=== PATIENT | male | born 1950 | race Caucasian/White ===

== ENCOUNTER 2020-04-11 15:01 | Outpatient (REF) | payer MEDICARE, SELFPAY ==
[2020-04-11 17:25] LABS: TSH reflex Free T4 10.57 mIU/mL (0.32-4.0)
[2020-04-11 18:00] LABS: Free T4 (Free Thyroxine) 0.89 ng/dL (0.71-1.85)
== END 2020-04-11 15:02 | disposition home or self-care (01) ==
LOC: HO.HMGCLDS 15:01
PROVIDERS: PCP Nurse Practitioner Family; Visit Provider Nurse Practitioner Family
DX: E03.9 Hypothyroidism, unspecified (principal)
CPT/HCPCS: 84439; 84443

== ENCOUNTER 2020-05-08 16:14 | Outpatient (REF) | payer MEDICARE, SELFPAY ==
--- NOTE | 2020-05-08 16:18 | US_ITS ---
EXAMINATION: US THYROID CLINICAL INFORMATION: Neoplasm of unspecified behavior of endocrine glands and other parts of nervous system. COMPARISON: Nuclear medicine parathyroid scan July 2017 TECHNIQUE: Linear transducer angelo-scale and color Doppler examination with attention to the region of the thyroid. FINDINGS: SIZE: Measurements of the thyroid lobes and nodules are given in sagittal, anteroposterior and transverse dimensions respectively. Right Thyroid Lobe: 4.5 x 1.6 x 1.3 cm, volume 5.0 mL. Parenchyma: The gland echotexture is heterogeneous. Thyroid vascularity is normal. Left Thyroid Lobe: 3.5 x 1.2 x 1.2 cm, volume 2.6 mL. Parenchyma: The gland echotexture is heterogeneous. Thyroid vascularity is normal. Isthmus: 0.4 cm in maximum AP dimension. RIGHT THYROID LOBE: No nodules. ISTHMUS: No nodules. LEFT THYROID LOBE: No nodules. NODES: No lymphadenopathy is seen in the tissue surrounding the thyroid gland. US/US thyroid IMPRESSION: Small very heterogeneous thyroid gland. This appearance is suggestive of old thyroiditis. No nodule seen..
== END 2020-05-08 16:15 | disposition home or self-care (01) ==
LOC: HO.US 16:14
PROVIDERS: PCP Nurse Practitioner Family; Visit Provider Nurse Practitioner Family
DX: D49.7 Neoplasm of unspecified behavior of endocrine glands and other parts of nervous system (principal)
CPT/HCPCS: 76536

== ENCOUNTER 2020-06-14 11:30 | Outpatient (REF) | payer MEDICARE, SELFPAY ==
[2020-06-14 14:50] LABS: TSH reflex Free T4 4.15 uIU/mL (0.32-4.0)
[2020-06-14 15:30] LABS: Free T4 (Free Thyroxine) 0.91 ng/dL (0.71-1.85)
== END 2020-06-14 11:31 | disposition home or self-care (01) ==
LOC: HO.HMGCLDS 11:30
PROVIDERS: PCP Nurse Practitioner Family; Visit Provider Nurse Practitioner Family
DX: E03.9 Hypothyroidism, unspecified (principal)
CPT/HCPCS: 36415; 84439; 84443

== ENCOUNTER 2020-08-23 09:18 | Outpatient (REF) | payer MEDICARE, SELFPAY ==
[2020-08-23 11:40] LABS: MANUAL DIFF FLAG NO
[2020-08-23 11:47] LABS: Basophils Absolute Auto 0.1 X10*3/uL (0.0-0.2); Basophils Percent Auto 0.7 % (0-2); Eosinophils Absolute Auto 0.3 X10*3/uL (0.0-0.4); Eosinophils Percent Auto 3.9 % (0-4); Hematocrit 52.1 % (42-52); Imm Gran Abs Auto 0.05 X10*3/uL (0.00-0.03); Imm Gran Pct Auto 0.6 % (0.0-0.4); Lymphocytes Absolute Auto 2.6 X10*3/uL (1.2-4.9); Mean Corpuscular HGB Conc 32.6 g/dl (31.0-36.0); Mean Corpuscular Hemoglobin 30.7 pg (27.0-33.0); Mean Platelet Volume 11.4 fL (9.4-12.4); Monocytes Absolute Auto 0.5 X10*3/uL (0.1-1.2); Monocytes Percent Auto 6.1 % (2-11); Neutrophils Absolute Auto 4.7 X10*3/uL (2.0-8.3); Neutrophils Percent Auto 56.7 % (45-73); Platelet Count 181 X10*3/uL (160-400); Red Blood Count 5.54 X10*6/uL (4.60-5.80); Red Cell Distribution Width 14.6 % (11.0-16.0); White Blood Count 8.2 X10*3/uL (4.8-10.8)
[2020-08-23 12:18] LABS: Alanine Aminotransferase 21 U/L (0-40); Albumin Level 4.3 g/dL (3.5-5.0); Alkaline Phosphatase 117 U/L (39-117); Anion Gap 13 (12-20); Aspartate Amino Transferase 21 U/L (5-37); Bilirubin Total 0.5 mg/dL (0.0-1.0); Blood Urea Nitrogen 8 mg/dL (9-16); Carbon Dioxide 29 mmol/L (22-29); Chloride 104 mmol/L (96-108); Cholesterol 197 mg/dL; Estimated Glomerular Filt Rate > 60; Glucose Fasting 103 mg/dL (60-99); HDL Cholesterol 42 mg/dL; LDL Cholesterol Calculated 119 mg/dl; Potassium 4.4 mmol/L (3.3-5.1); Sodium 142 mmol/L (135-145); Total Protein 7.2 g/dL (6.5-8.0); Triglycerides 184 mg/dL
[2020-08-23 12:24] LABS: Prostate Specific Antigen Scr 1.33 ng/mL (<0.05-4.0); TSH reflex Free T4 3.35 uIU/mL (0.32-4.0)
== END 2020-08-23 09:19 | disposition home or self-care (01) ==
LOC: HO.HMGCLDS 09:18
PROVIDERS: PCP Nurse Practitioner Family; Visit Provider Nurse Practitioner Family
DX: I49.9 Cardiac arrhythmia, unspecified (principal); E78.5 Hyperlipidemia, unspecified; Z12.5 Encounter for screening for malignant neoplasm of prostate
CPT/HCPCS: 36415; 80053; 80061; 84153; 84443; 85025

== ENCOUNTER → 2020-09-12 14:00 | Outpatient (REF) | payer MEDICARE, SELFPAY ==
--- NOTE | 2020-09-12 14:10 | ECG_ITS ---
Hook-up date: 2020-09-12 14:24:00 Duration: 40:15:00 Test Indications: CARDIAC ARHHYTHMIA, UNSPECIFIED Medications: 264178 QRS complexes 4626 Ventricular ectopics which represent 4 % of total QRS comp. 2306 Supraventricular ectopics which represent 2 % of total QRS comp. 1 Paced QRS complexs which represent 2 % of total QRS comp. VENTRICULAR ECTOPY 4579 Isolated 183 Bigeminal Cycles 22 Couplets 1 Runs 3 Beats in Runs 3 Beats LONGEST at 159 BPM at 20:26:36 2020-09-12 3 Beats FASTEST at 159 BPM at 20:26:36 2020-09-12 SUPRAVENTRICULAR ECTOPY 2141 Isolated 65 Couplets 7 Runs 35 Beats in Runs 12 Beats LONGEST at 110 BPM at 07:06:03 2020-09-13 3 Beats FASTEST at 148 BPM at 17:34:53 2020-09-12 HEART RATES 46 MIN at 01:04:24 2020-09-13 74 AVG 126 MAX at 15:36:11 2020-09-12 LONGEST RR 1.3920 secs at 05:24:43 2020-09-13 S-T LEVELS Channel 1 - 128 mm at 14:24:00 2020-09-12 - 128 mm at 14:24:00 2020-09-12 Channel 2 - 128 mm at 14:24:00 2020-09-12 - 128 mm at 14:24:00 2020-09-12 Channel 3 - 128 mm at 03:34:31 -- - 128 mm at 03:34:31 Underlying rhythm is sinus; Average ventricular rate 74/min; Occasional Premature atrial complexes (2%); mostly isolated; some runs, longest 12 beats; Frequent Premature ventricular complexes (4%); mostly isolated; some couplets; bigeminy; No sustained arrhythmias; Patient did not report any symptoms in the diary Referred By: Konrad Marte Overread By: JANIS SEO
[2020-09-12 15:45] LABS: TSH reflex Free T4 4.22 uIU/mL (0.32-4.0)
[2020-09-12 16:36] LABS: Free T4 (Free Thyroxine) 0.93 ng/dL (0.71-1.85)
== END ==
LOC: HO.CARD 14:00
PROVIDERS: PCP Nurse Practitioner Family; Visit Provider Nurse Practitioner Family
DX: I49.9 Cardiac arrhythmia, unspecified (principal); R06.02 Shortness of breath; E03.9 Hypothyroidism, unspecified
CPT/HCPCS: 36415; 84439; 84443; 93225; 93226

== ENCOUNTER 2021-06-11 11:25 | Outpatient (REF) | payer MEDICARE, SELFPAY ==
--- NOTE | ~2021-06-11 | XR_ITS ---
EXAMINATION: XR LUMBOSACRAL SPINE CLINICAL INFORMATION: Low back pain COMPARISON: None TECHNIQUE: Three views of the lumbosacral spine. FINDINGS: No acute fracture or traumatic malalignment. Vertebral body heights maintained. Slight retrolisthesis of L2 on L3. Near-complete loss of disc space height at L5-S1. Mild loss of disc space height at L2-L3 and L3-L4. Bulky hypertrophic facet arthropathy at L4-L5 and L5-S1, and to a lesser extent L3-L4. Mild bilateral sacroiliac arthrosis. Paraspinal soft tissues unremarkable. XR/XR lumbar spine 2-3V IMPRESSION: No acute findings. Lumbar spondylosis as described.
[2021-06-11 15:02] LABS: Alanine Aminotransferase 17 U/L (0-40); Albumin Level 4.4 g/dL (3.5-5.0); Alkaline Phosphatase 131 U/L (39-117); Anion Gap 10 (12-20); Aspartate Amino Transferase 26 U/L (5-37); Bilirubin Total 0.7 mg/dL (0.0-1.0); Blood Urea Nitrogen 10 mg/dL (9-16); Calcium 9.4 mg/dL (8.4-10.2); Carbon Dioxide 30 mmol/L (22-29); Chloride 104 mmol/L (96-108); Cholesterol 171 mg/dL; Estimated Glomerular Filt Rate > 60; Glucose Fasting 99 mg/dL (60-99); HDL Cholesterol 42 mg/dL; LDL Cholesterol Calculated 100 mg/dl; Potassium 4.3 mmol/L (3.3-5.1); Sodium 140 mmol/L (135-145); Total Protein 7.2 g/dL (6.5-8.0); Triglycerides 145 mg/dL
[2021-06-11 15:25] LABS: TSH reflex Free T4 2.76 uIU/mL (0.32-4.0)
== END 2021-06-11 11:26 | disposition home or self-care (01) ==
LOC: HO.HMGCX 11:25
PROVIDERS: PCP Nurse Practitioner Family; Visit Provider Nurse Practitioner Family
DX: M54.50 Low back pain, unspecified (principal); E78.5 Hyperlipidemia, unspecified
CPT/HCPCS: 36415; 72100; 80053; 80061; 84443

== ENCOUNTER → 2021-09-12 14:07 | Outpatient (RCR) | payer MEDICARE, SELFPAY ==
--- NOTE | 2020-03-02 14:56 | MHC.PT.EP ---
[facility] [place] Office [place] Office [place] Office [address] Marilu Durham [address] [phone] F: [phone] F: [phone] F: [phone] F: [phone] Physical Therapy Plan of Care Date of Evaluation: 03/02/20 Date of Surgery: n/a Diagnosis: Better Impairment Assessment: Patient is a 69 year old male recently diagnosed with Alzheimer's per his daughters report. He enjoys staying active and walks his dogs 2x/day. He has good strength and is determined to be a safe ambulator and not in need of skilled PT at this time. Frequency and Duration: The patient will be seen d/c today. Short Term Goals: Campaign Assistant Goals: Treatment Plan: Modalities to reduce pain, spasms and effusion. Manual therapy to restore motion and function. Therapeutic exercise to improve strength and flexibility. Neuromuscular re-education for posture and balance. Therapeutic activities to return to functional activities of daily living. Please sign and return to therapist. Thank you for your referral.
--- NOTE | 2021-09-12 14:07 | MHC.PT.DC ---
[facility] [place] Office [place] Office [place] Office [address] Marilu Durham 140 [facility] [phone] F: [phone] F: [phone] F: [phone] F: [phone] Physical Therapy Discharge Report Diagnosis: Better Impairment Date of Surgery: n/a Date of Evaluation: 03/02/20 Date of Discharge: 09/12/21 Treatments to Date: 1 Cancellations to Date: No Shows to Date: Discharge Status: Patient Elected to Stop Discharge Summary: Pt is a 69 year old male recently diagnosed with alzheimers who is attending this PT evaluation for a balance assessment to determine if PT is needed. It is my determination that he is a safe ambulator at this time and is not in need of skilled PT as a result of his current strength and DGI/balance test performance. DC to [facility] Electronically signed by: Brinda Saba PT Please sign and return to therapist. Thank you for your referral.
== END | disposition home or self-care (01) ==
LOC: HO.PTCHIC 03-02 13:52
PROVIDERS: PCP Nurse Practitioner Family; Visit Provider Nurse Practitioner Family
DX: R26.89 Other abnormalities of gait and mobility (principal)
CPT/HCPCS: 97161

== ENCOUNTER 2021-11-19 13:56 | Outpatient (REF) | payer MEDICARE, SELFPAY ==
[2021-11-19 16:41] LABS: MANUAL DIFF FLAG NO
[2021-11-19 16:43] LABS: Basophils Absolute Auto 0.1 X10*3/uL (0.0-0.2); Basophils Percent Auto 0.4 % (0-2); Eosinophils Absolute Auto 0.3 X10*3/uL (0.0-0.4); Eosinophils Percent Auto 2.3 % (0-4); Hematocrit 54.5 % (42.0-52.0); Imm Gran Abs Auto 0.04 X10*3/uL (0.00-0.03); Imm Gran Pct Auto 0.4 % (0.0-0.4); Lymphocytes Absolute Auto 3.1 X10*3/uL (1.2-4.9); Lymphocytes Percent Auto 27.6 % (20-40); Mean Corpuscular Hemoglobin 30.6 pg (27.0-33.0); Mean Corpuscular Volume 92.5 fL (80.0-98.0); Mean Platelet Volume 11.2 fL (9.4-12.4); Monocytes Absolute Auto 0.8 X10*3/uL (0.1-1.2); Monocytes Percent Auto 6.8 % (2-11); Neutrophils Absolute Auto 7.1 x10*3/uL (2.0-8.3); Neutrophils Percent Auto 62.5 % (45-73); Platelet Count 197 X10*3/uL (160-400); Red Blood Count 5.89 X10*6/uL (4.60-5.80); Red Cell Distribution Width 14.5 % (11.0-16.0); White Blood Count 11.4 X10*3/uL (4.8-10.8)
[2021-11-19 16:58] LABS: Alanine Aminotransferase 15 U/L (0-40); Albumin Level 4.7 g/dL (3.5-5.0); Alkaline Phosphatase 130 U/L (39-117); Anion Gap 15 (12-20); Aspartate Amino Transferase 19 U/L (5-37); Bilirubin Total 0.5 mg/dL (0.0-1.0); Blood Urea Nitrogen 10 mg/dL (9-16); Calcium 9.5 mg/dL (8.4-10.2); Carbon Dioxide 23 mmol/L (22-29); Chloride 107 mmol/L (96-108); Estimated Glomerular Filt Rate > 60; Glucose Fasting 86 mg/dL (60-99); Sodium 141 mmol/L (135-145); Total Protein 7.6 g/dL (6.5-8.0)
[2021-11-19 17:18] LABS: TSH reflex Free T4 5.68 uIU/mL (0.32-4.0)
[2021-11-19 17:56] LABS: Free T4 (Free Thyroxine) 0.97 ng/dL (0.71-1.85)
== END 2021-11-19 13:57 | disposition home or self-care (01) ==
LOC: HO.HMGCLDS 13:56
PROVIDERS: Visit Provider Nurse Practitioner Family
DX: E86.0 Dehydration (principal); R55 Syncope and collapse
CPT/HCPCS: 36415; 80053; 84439; 84443; 85025

== ENCOUNTER 2021-12-03 09:04 | Outpatient (REF) | payer MEDICARE, SELFPAY ==
[2021-12-03 11:35] LABS: MANUAL DIFF FLAG NO
[2021-12-03 11:46] LABS: Basophils Percent Auto 0.5 % (0-2); Eosinophils Absolute Auto 0.3 X10*3/uL (0.0-0.4); Eosinophils Percent Auto 3.1 % (0-4); Hematocrit 50.3 % (42.0-52.0); Hemoglobin 16.3 g/dl (14.0-18.0); Imm Gran Abs Auto 0.03 X10*3/uL (0.00-0.03); Imm Gran Pct Auto 0.3 % (0.0-0.4); Lymphocytes Absolute Auto 2.3 X10*3/uL (1.2-4.9); Mean Corpuscular HGB Conc 32.4 g/dl (31.0-36.0); Mean Corpuscular Hemoglobin 30.2 pg (27.0-33.0); Mean Corpuscular Volume 93.3 fL (80.0-98.0); Mean Platelet Volume 11.1 fL (9.4-12.4); Monocytes Absolute Auto 0.5 X10*3/uL (0.1-1.2); Monocytes Percent Auto 5.9 % (2-11); Neutrophils Absolute Auto 5.4 x10*3/uL (2.0-8.3); Neutrophils Percent Auto 63.2 % (45-73); Platelet Count 186 X10*3/uL (160-400); Red Blood Count 5.39 X10*6/uL (4.60-5.80); Red Cell Distribution Width 14.6 % (11.0-16.0); White Blood Count 8.6 X10*3/uL (4.8-10.8)
[2021-12-03 11:55] LABS: Alanine Aminotransferase 19 U/L (0-40); Albumin Level 4.5 g/dL (3.5-5.0); Alkaline Phosphatase 121 U/L (39-117); Anion Gap 12 (12-20); Aspartate Amino Transferase 19 U/L (5-37); Bilirubin Direct 0.2 mg/dL (0.0-0.5); Bilirubin Total 0.5 mg/dL (0.0-1.0); Blood Urea Nitrogen 18 mg/dL (9-16); Calcium 9.2 mg/dL (8.4-10.2); Carbon Dioxide 30 mmol/L (22-29); Chloride 104 mmol/L (96-108); Estimated Glomerular Filt Rate > 60; Gamma Glutamyl Transpeptidase 51 U/L (11-51); Glucose Random 95 mg/dL (60-115); Potassium 4.5 mmol/L (3.3-5.1); Sodium 141 mmol/L (135-145); Total Protein 7.2 g/dL (6.5-8.0)
[2021-12-03 12:16] LABS: Prostate Specific Antigen Scr 0.82 ng/mL (<0.05-4.0)
== END 2021-12-03 09:05 | disposition home or self-care (01) ==
LOC: HO.HMGCLDS 09:04
PROVIDERS: PCP Nurse Practitioner Family; Visit Provider Nurse Practitioner Family
DX: Z12.5 Encounter for screening for malignant neoplasm of prostate (principal); R74.8 Abnormal levels of other serum enzymes; D72.829 Elevated white blood cell count, unspecified
CPT/HCPCS: 36415; 80053; 82248; 82977; 84153; 85025

== ENCOUNTER 2022-01-24 14:44 | Outpatient (REF) | payer MEDICARE, SELFPAY ==
[2022-01-24 17:54] LABS: TSH reflex Free T4 3.36 uIU/mL (0.32-4.0)
== END 2022-01-24 14:45 | disposition home or self-care (01) ==
LOC: HO.HMGCLDS 14:44
PROVIDERS: PCP Nurse Practitioner Family; Visit Provider Nurse Practitioner Family
DX: E03.9 Hypothyroidism, unspecified (principal)
CPT/HCPCS: 36415; 84443

== ENCOUNTER 2023-02-03 10:29 | Outpatient (AMB) | payer MEDICARE, SELFPAY ==
[2023-02-03 10:32] VITALS: BP 120/80; PULSE 66; O2SAT 100; BMI 24.3
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
== END 2023-02-03 11:40 | disposition home or self-care (01) ==
PROVIDERS: Visit Provider Nurse Practitioner Family
DX: F32.4 Major depressive disorder, single episode, in partial remission (principal); G30.9 Alzheimer's disease, unspecified; F02.818 Dementia in other diseases classified elsewhere, unspecified severity, with other behavioral disturbance
CPT/HCPCS: 99213

== ENCOUNTER 2023-05-26 10:17 | Outpatient (REF) | payer MEDICARE, SELFPAY ==
[2023-05-26 13:30] LABS: MANUAL DIFF FLAG NO
[2023-05-26 13:35] LABS: Basophils Absolute Auto 0.1 X10*3/uL (0.0-0.2); Basophils Percent Auto 0.5 % (0-2); Eosinophils Absolute Auto 0.2 X10*3/uL (0.0-0.4); Hematocrit 53.4 % (42.0-52.0); Hemoglobin 17.3 g/dl (14.0-18.0); Imm Gran Abs Auto 0.03 X10*3/uL (0.00-0.03); Imm Gran Pct Auto 0.3 % (0.0-0.4); Lymphocytes Absolute Auto 2.1 X10*3/uL (1.2-4.9); Lymphocytes Percent Auto 21.4 % (20-40); Mean Corpuscular HGB Conc 32.4 g/dl (31.0-36.0); Mean Corpuscular Volume 92.5 fL (80.0-98.0); Mean Platelet Volume 10.9 fL (9.4-12.4); Monocytes Absolute Auto 0.6 X10*3/uL (0.1-1.2); Monocytes Percent Auto 5.8 % (2-11); Neutrophils Absolute Auto 6.9 x10*3/uL (2.0-8.3); Platelet Count 212 X10*3/uL (160-400); Red Blood Count 5.77 X10*6/uL (4.60-5.80); Red Cell Distribution Width 14.5 % (11.0-16.0); White Blood Count 9.9 X10*3/uL (4.8-10.8)
[2023-05-26 13:59] LABS: Alanine Aminotransferase 15 U/L (0-40); Albumin Level 4.4 g/dL (3.5-5.0); Alkaline Phosphatase 104 U/L (39-117); Anion Gap 15 (12-20); Aspartate Amino Transferase 19 U/L (5-37); Bilirubin Total 0.7 mg/dL (0.0-1.0); Blood Urea Nitrogen 17 mg/dL (9-16); Calcium 9.7 mg/dL (8.4-10.2); Carbon Dioxide 28 mmol/L (22-29); Chloride 101 mmol/L (96-108); Cholesterol 180 mg/dL (<200); Estimated Glomerular Filt Rate > 60; Glucose Fasting 90 mg/dL (60-99); HDL Cholesterol 40 mg/dL (>40); LDL Cholesterol Calculated 94 mg/dL (<100); Potassium 4.8 mmol/L (3.3-5.1); Sodium 139 mmol/L (135-145); Total Protein 7.6 g/dL (6.5-8.0); Triglycerides 234 mg/dL (<150)
[2023-05-26 14:10] LABS: Prostate Specific Antigen Scr 0.99 ng/mL (<0.05-4.0)
[2023-05-26 14:22] LABS: TSH reflex Free T4 5.06 uIU/mL (0.32-4.0)
[2023-05-26 15:03] LABS: Free T4 (Free Thyroxine) 0.93 ng/dL (0.71-1.85)
== END 2023-05-26 10:18 | disposition home or self-care (01) ==
LOC: HO.HMGCLDS 10:17
PROVIDERS: PCP Nurse Practitioner Family; Visit Provider Nurse Practitioner Family
DX: G30.9 Alzheimer's disease, unspecified (principal); F01.50 Vascular dementia, unspecified severity, without behavioral disturbance, psychotic disturbance, mood disturbance, and anxiety; F02.80 Dementia in other diseases classified elsewhere, unspecified severity, without behavioral disturbance, psychotic disturbance, mood disturbance, and anxiety; F32.4 Major depressive disorder, single episode, in partial remission; Z12.5 Encounter for screening for malignant neoplasm of prostate
CPT/HCPCS: 36415; 80053; 80061; 84153; 84439; 84443; 85025

== ENCOUNTER 2023-05-26 10:26 | Outpatient (AMB) | payer MEDICARE, SELFPAY ==
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
[2023-05-26 10:33] VITALS: BP 110/74; PULSE 71; O2SAT 97; BMI 24.5
== END 2023-05-26 11:19 | disposition home or self-care (01) ==
PROVIDERS: PCP Nurse Practitioner Family; Visit Provider Nurse Practitioner Family
DX: G30.9 Alzheimer's disease, unspecified (principal); F02.818 Dementia in other diseases classified elsewhere, unspecified severity, with other behavioral disturbance; S40.811A Abrasion of right upper arm, initial encounter; Z23 Encounter for immunization
CPT/HCPCS: 90471; 90715; 99213

== ENCOUNTER 2023-08-14 10:13 | Outpatient (REF) | payer MEDICARE, SELFPAY ==
[2023-08-14 13:45] LABS: MANUAL DIFF FLAG NO
[2023-08-14 13:50] LABS: Basophils Absolute Auto 0.1 X10*3/uL (0.0-0.2); Basophils Percent Auto 0.6 % (0-2); Eosinophils Absolute Auto 0.2 X10*3/uL (0.0-0.4); Eosinophils Percent Auto 2.3 % (0-4); Hematocrit 52.5 % (42.0-52.0); Hemoglobin 17.1 g/dl (14.0-18.0); Imm Gran Abs Auto 0.03 X10*3/uL (0.00-0.03); Imm Gran Pct Auto 0.3 % (0.0-0.4); Lymphocytes Absolute Auto 1.9 X10*3/uL (1.2-4.9); Lymphocytes Percent Auto 21.8 % (20-40); Mean Corpuscular HGB Conc 32.6 g/dl (31.0-36.0); Mean Corpuscular Hemoglobin 30.4 pg (27.0-33.0); Mean Corpuscular Volume 93.3 fL (80.0-98.0); Mean Platelet Volume 11.1 fL (9.4-12.4); Monocytes Absolute Auto 0.5 X10*3/uL (0.1-1.2); Monocytes Percent Auto 6.2 % (2-11); Neutrophils Absolute Auto 5.9 x10*3/uL (2.0-8.3); Neutrophils Percent Auto 68.8 % (45-73); Platelet Count 181 X10*3/uL (160-400); Red Blood Count 5.63 X10*6/uL (4.60-5.80); Red Cell Distribution Width 14.6 % (11.0-16.0); White Blood Count 8.6 X10*3/uL (4.8-10.8)
[2023-08-14 14:19] LABS: Alanine Aminotransferase 15 U/L (0-40); Albumin Level 4.4 g/dL (3.5-5.0); Alkaline Phosphatase 98 U/L (39-117); Anion Gap 12 (12-20); Aspartate Amino Transferase 20 U/L (5-37); Bilirubin Total 0.9 mg/dL (0.0-1.0); Blood Urea Nitrogen 14 mg/dL (9-16); Calcium 9.4 mg/dL (8.4-10.2); Carbon Dioxide 29 mmol/L (22-29); Chloride 104 mmol/L (96-108); Cholesterol 158 mg/dL (<200); Estimated Glomerular Filt Rate > 60; Glucose Fasting 83 mg/dL (60-99); HDL Cholesterol 45 mg/dL (>40); LDL Cholesterol Calculated 83 mg/dL (<100); Potassium 4.5 mmol/L (3.3-5.1); Sodium 140 mmol/L (135-145); Total Protein 7.4 g/dL (6.5-8.0); Triglycerides 153 mg/dL (<150)
[2023-08-14 14:23] LABS: TSH reflex Free T4 3.95 uIU/mL (0.32-4.0)
== END 2023-08-14 10:14 | disposition home or self-care (01) ==
LOC: HO.HMGCLDS 10:13
PROVIDERS: PCP Nurse Practitioner Family; Visit Provider Nurse Practitioner Family
DX: E03.9 Hypothyroidism, unspecified (principal); E78.5 Hyperlipidemia, unspecified
CPT/HCPCS: 36415; 80053; 80061; 84443; 85025

== ENCOUNTER 2023-08-27 14:49 | Outpatient (AMB) | payer MEDICARE, SELFPAY ==
--- NOTE | 2023-08-27 15:56 | MHC.OFFVISPS ---
Intake Vital Signs 08/27/23 15:57 Height 6 ft 2 in Weight 191 lb BP 110/72 Intake Visit Reasons: depression, Alzheimer's dementia with agitation Intake Note: 72 yo male with diagnosis of Alzheimer's dementia with intermittent agitation and aggressive behavior referred by PCP Dr. Marte. Billing Assistant Required: No Allergies acetaminophen [Percocet] Adverse Reaction (Unknown, Verified 05/26/23 10:34) nausea, dry heaves oxycodone [Percocet] Adverse Reaction (Unknown, Verified 05/26/23 10:34) nausea, dry heaves HPI- Psychiatric Chief Complaint: depression, Alzheimer's dementia with agitation HPI Narrative: pt is here with his sister Toshia who is also his HCP; copy of HCP in chart. Pt is polite and cooperative in session; he reports he is unhappy about many things including loss of his , loss of his mother, recent loss of his dog. he is unable to drive and he does not like that. He does state he eats well; he says his daughter is difficult to live with due to needing so much help such as doing laundry and not putting excessive amounts of soap in the washer which causes problems. His sister tells me that Trung is often unhappy. he can be very verbally aggressive and at times physically aggressive. The family is trying to keep him in his home as long as possible but it has been very hard due to his forgetfulness and his moods and aggression. The family has help from [facility]. We discussed medication options for irritability and aggression as well as the risks vs benefits and potential side effects including the risk of stroke and . We discussed mood stabilizers and atypical antipsychotics; HCP and I agree that given depression and agitation due to dementia that a trial of rexulti is reasonable. discussed startifgin low. improtance of hyfdrating and watching for syncope, dizziness and unsteadiness. Past Psychiatric History: N IPLOC, no history of treatment with psychiatry or therapy in past; on zoloft 200mg daily with PCP diagnosed with dementia by Dr Aldridge 2+ years ago. Now followed by [facility] Neu[facility] Presenting symptoms: Reports disorientation to time, geographical disorientation and personality changes Christianson: I=independent, NA=needs assistance, CD=completely dependent Daily Functions: Dressing: Needs Assistance, Grooming: Needs Assistance, Toileting: Independent, Eating: Independent, Finances: Needs Assistance, Cooking: Needs Assistance, Cleaning: Needs Assistance and Driving: Completely Dependent Tempo of progression: slow progression Aided by cues: Yes Wandering: No Medication trials: Namenda/Memantine Subjective Subjective Subjective Medication Compliance: Intermittent Side effects from medications: No Review of Systems Medical Review of Systems: unchanged Mental Status Exam Mental Status Exam Patient Appearance: Disheveled and Unkempt Patient Orientation: Person, Place and Situation (in a general way) Level of Consciousness: Awake Patient Behavior: Appropriate and Cooperative Mood Description: Calm and Sad Affect Description: Calm and Sad Patient Cognition Impaired: Yes Ability to Follow Directions: Fair Speech Pattern: Spontaneous Speech, Cofabulation and Delayed Hallucinations: None Delusions: Not Present Thought Process: Distracted Thought Content: positive for Loose Associations Judgement: Poor Assessment and Plan Assessment & Plan (1) Alzheimer's dementia with agitation: Qualifiers: Alzheimer's disease onset: early onset Dementia severity: moderate Qualified Code(s): G30.0 - Alzheimer's disease with early onset; F02.B11 - Dementia in other diseases classified elsewhere, moderate, with agitation Code(s): G30.9 - Alzheimer's disease, unspecified; F02.811 - Dementia in other diseases classified elsewhere, unspecified severity, with agitation Plan start rexulti 0.25mg daily hydrate monitor for side effects return in 4 weeks with plan to titrate up Medications: New brexpiprazole (Rexulti) 0.25 mg PO DAILY 30 tabs 1RF Counseling and coordination of Care Pt. Self Management counseling: Sleep hygiene Details-Self Mgmt counseling: management of orthostatic hypotension Medication management counseling: Effectiveness, Side effects, Dosing range, Duration, Drug interaction and Adherence Diagnosis and Prognosis Counseling: Accuracy of diagnosis, Prognosis over time, Impact of diagnosis on life functions, Impact of family relationship, Problematic behaviors secondary to diagnosis and Adequacy of current interventions Details: I spent 60 minutes reviewing the record, seeing the patient and documenting in the medical record. Counseling provided to the patient/caregiver as outlined below. Addressed patient/caregiver concerns regarding current medication regime including effective adherence. Addressed patient/caregiver concerns regarding diagnosis and prognosis including accuracy of diagnosis, prognosis over time, impact of diagnosis. Addressed patient/caregiver concerns regarding impact of recent stressors. [facility] Medical History Mixed Alzheimer's and vascular dementia Balance problem Vitamin D deficiency HTN (hypertension) Major depressive disorder Irregular heart rhythm Alzheimer disease Osteoarthritis of right shoulder Lumbar spondylosis Lumbar degenerative disc disease Anxiety GERD (gastroesophageal reflux disease) Hypothyroid Surgical History History of parathyroidectomy Family History Father CVD (cardiovascular disease) Mother Unknown family medical history Social History Housing: House Alcohol intake: current Alcohol intake frequency: holidays/special occasions only Patient Tobacco Use Status: Former Tobacco user Years Smoked: quit 40 years ago e-Cigarette/Vaping Use: Never Used Second Hand Smoke Exposure: No Current occupational status: retired Cognitive needs: No Hearing needs: Yes Vision needs: Yes Social History: x 7 yrs; lives wit daughter who has special needs; siblings are supportive; his HCP is sister Toshia Substance History: etoh in past rarely now Trauma History: none known Coding Level of Care Code Psych Diag Eval w/Med (67143) Diagnoses Moderate early onset Alzheimer's dementia with agitation G30.0; F02.B11 Alzheimer's disease onset: early onset Dementia severity: moderate
[2023-08-27 15:57] VITALS: BP 110/72
== END 2023-08-27 17:26 | disposition home or self-care (01) ==
LOC: HO.HOP 14:49
PROVIDERS: PCP Nurse Practitioner Family; Visit Provider Clinical Nurse Specialist Psychiatric/Mental Health
DX: G30.0 Alzheimer's disease with early onset (principal); F02.B11 Dementia in other diseases classified elsewhere, moderate, with agitation
CPT/HCPCS: 90792

== ENCOUNTER → 2023-08-27 14:49 | Outpatient (BNVA) | payer MEDICARE, SELFPAY | PROVIDERS: PCP Nurse Practitioner Family; Visit Provider Clinical Nurse Specialist Psychiatric/Mental Health | DX: G30.0 Alzheimer's disease with early onset (principal); F02.B11 Dementia in other diseases classified elsewhere, moderate, with agitation | CPT/HCPCS: 90792 ==

== ENCOUNTER 2023-09-15 13:06 | Outpatient (AMB) | payer MEDICARE, SELFPAY ==
--- NOTE | 2023-09-15 13:07 | A.OFFPC_ITS ---
Vital Signs 09/15/23 13:13 Height 6 ft 2 in Weight 196 lb BMI 25.2 BP 120/80 Blood Pressure Location Rt brachial Position Sitting Pulse 85 Pulse Source Pulse Oximeter Pulse Oximetry (%) 97 Oxygen Delivery Method Room Air Intake Visit Reasons: 3 month fu Intake Note: Patient here Allergies acetaminophen [Percocet] Adverse Reaction (Unknown, Verified 09/15/23 13:20) nausea, dry heaves oxycodone [Percocet] Adverse Reaction (Unknown, Verified 09/15/23 13:20) nausea, dry heaves Medication List - Last Reconciled 09/15/23 by [facility] Crowe acetaminophen (Tylenol Extra Strength) 500 mg PO BID PRN aripiprazole (Abilify) 2 mg PO DAILY atorvastatin 20 mg PO DAILY 90 days cholecalciferol (vitamin D3) 25 mcg PO DAILY 90 days donepezil 10 mg PO DAILY 90 days famotidine 40 mg PO BEDTIME 90 days flu vac 2020 [id number](PF) 60 mcg (15 mcg x 4)/0.5 mL 0.5 mL IM DIRECTED levothyroxine 100 mcg PO DAILY 90 days loratadine (Claritin) 10 mg PO DAILY memantine 10 mg PO DAILY omeprazole 40 mg PO DAILY 90 days sertraline 200 mg (2 x 100 mg) PO DAILY 90 days Tobacco use date assessed: 05/26/23 Fall risk assessment: No Falls in past year Last assessed Fall Risk: 09/15/23 Dental Screening Dental Screen Date: 05/26/23 HPI 3 month fu HPI Details Pt's sister is in the room today. Pt is following up with psychiatry due to Alzheimer's with aggression. He was started on rexulti but copay was too high. Pt was switched to abilify which he started 1 week ago. He is in very good spirits today. Pt's sister is looking into a day program for him for socialization. Denies fever, chills, and dizziness. NOTE: pt lives with his daughter, and is checked upon, daily, by sisters [facility] Medical History Mixed Alzheimer's and vascular dementia Balance problem Vitamin D deficiency HTN (hypertension) Major depressive disorder Irregular heart rhythm Alzheimer disease Osteoarthritis of right shoulder Lumbar spondylosis Lumbar degenerative disc disease Anxiety GERD (gastroesophageal reflux disease) Hypothyroid Surgical History History of parathyroidectomy Family History Father CVD (cardiovascular disease) Mother Unknown family medical history Social History Housing: House Alcohol intake: current Alcohol intake frequency: holidays/special occasions only Patient Tobacco Use Status: Former Tobacco user Years Smoked: quit 40 years ago e-Cigarette/Vaping Use: Never Used Second Hand Smoke Exposure: No Current occupational status: retired Cognitive needs: No Hearing needs: Yes Vision needs: Yes Questionnaire Thrive Questionnaire Date Thrive assessed: 05/26/23 AUDIT C Alcohol Use Questionnaire (AUDIT-C) 1. How often do you have a drink containing alcohol?: Never 3. How often do you have six or more drinks on one occasion?: Never Total Score: 0 Score Reviewed/Action Taken: No DEMIAN-7 AMB Questionnaire DEMIAN-7 Date DEMIAN - 7 assessed: 05/26/23 Source: Developed by Drs. Robbie Anderson, Elizabeth Hilario, Cristofer Sánchez and colleagues, with an educational mansoor from [employer]. Review of Systems Const Reports as per HPI Physical exam (Primary Care) Vital Signs: Last Vital Signs Pulse 85 09/15/23 13:13 BP 120/80 09/15/23 13:13 Pulse Ox 97 09/15/23 13:13 Oxygen Delivery Method Room Air 09/15/23 13:13 BMI result Body Mass Index 25.2 Tobacco/Smoking Status: Tobacco use Status Tobacco use date assessed 05/26/23 09/15/23 13:10 Patient Tobacco Use Status Former Tobacco user 09/15/23 13:10 e-Cigarette/Vaping Use Never Used 09/15/23 13:10 Thrive Assessment: Date of Thrive Assessment Date Thrive assessed 05/26/23 09/15/23 13:10 Const General: cooperative Orientation/consciousness: patient oriented x3 Resp Effort & Inspection: normal respiratory effort Auscultation: clear to auscultation bilaterally Cardio Rate: regular rate Rhythm: regular rhythm Heart sounds: S1 normal heart sound present and S2 normal heart sound present Neuro General: patient oriented x3 Psych Appearance: grossly normal Speech and movement: Normal speech and movement present Affect: normal affect Attitude: cooperative Assessment and Plan Assessment & Plan (1) Alzheimer's dementia: Code(s): G30.9 - Alzheimer's disease, unspecified; F02.80 - Dementia in other diseases classified elsewhere, unspecified severity, without behavioral disturbance, psychotic disturbance, mood disturbance, and anxiety Plan: Lab ordered, continue current meds. hoping to help treat pt's aggression. Plan The patient agreed to the use of a medical resident for this encounter. Scribed for Konrad Marte [facility]- by Julia Musa medical resident, on 09/15/2023 at 13:25 EST. Orders: Orders Vitamin B12 and Folate Today F02.80 - Dementia in other diseases classified elsewhere, unspecified severity, without behavioral disturbance, psychotic disturbance, mood disturbance, and anxiety, G30.9 - Alzheimer's disease, unspecified Complete Blood Count Auto Diff Today F02.80 - Dementia in other diseases classified elsewhere, unspecified severity, without behavioral disturbance, psychotic disturbance, mood disturbance, and anxiety, G30.9 - Alzheimer's disease, unspecified Comprehensive Met. Panel Today F02.80 - Dementia in other diseases classified elsewhere, unspecified severity, without behavioral disturbance, psychotic disturbance, mood disturbance, and anxiety, G30.9 - Alzheimer's disease, unspecified TSH reflex Free T4 Today F02.80 - Dementia in other diseases classified elsewhere, unspecified severity, without behavioral disturbance, psychotic disturbance, mood disturbance, and anxiety, G30.9 - Alzheimer's disease, unspecified Coding Level of Care Code Est Pt Level 3 (26576) Diagnoses Alzheimer's dementia G30.9; F02.80
[2023-09-15 13:13] VITALS: BP 120/80; PULSE 85; O2SAT 97; BMI 25.2
== END 2023-09-15 14:26 | disposition home or self-care (01) ==
PROVIDERS: PCP Nurse Practitioner Family; Visit Provider Nurse Practitioner Family
DX: G30.9 Alzheimer's disease, unspecified (principal); F02.80 Dementia in other diseases classified elsewhere, unspecified severity, without behavioral disturbance, psychotic disturbance, mood disturbance, and anxiety
CPT/HCPCS: 99213

== ENCOUNTER 2023-09-15 13:51 | Outpatient (REF) | payer MEDICARE, SELFPAY ==
[2023-09-15 16:18] LABS: MANUAL DIFF FLAG NO
[2023-09-15 16:22] LABS: Appearance Urine Turbid; Color Urine Yellow; Glucose Urine UA Negative (Negative); Leukocyte Esterase Urine Trace (Negative); Nitrite Urine Negative (Negative); Specific Gravity - Urine 1.025 (1.005-1.025); UMIC TRIGGER UACC YES; Urine Blood Negative (Negative); Urine Ketones Negative (Negative); Urine Protein Negative (Neg-Trace)
[2023-09-15 16:34] LABS: Basophils Absolute Auto 0.1 X10*3/uL (0.0-0.2); Basophils Percent Auto 0.5 % (0-2); Eosinophils Absolute Auto 0.3 X10*3/uL (0.0-0.4); Eosinophils Percent Auto 2.7 % (0-4); Hemoglobin 17.8 g/dl (14.0-18.0); Imm Gran Abs Auto 0.03 X10*3/uL (0.00-0.03); Imm Gran Pct Auto 0.3 % (0.0-0.4); Lymphocytes Absolute Auto 1.6 X10*3/uL (1.2-4.9); Lymphocytes Percent Auto 16.5 % (20-40); Mean Corpuscular Hemoglobin 31.1 pg (27.0-33.0); Mean Corpuscular Volume 94.2 fL (80.0-98.0); Mean Platelet Volume 10.8 fL (9.4-12.4); Monocytes Absolute Auto 0.6 X10*3/uL (0.1-1.2); Monocytes Percent Auto 6.2 % (2-11); Neutrophils Percent Auto 73.8 % (45-73); Platelet Count 185 X10*3/uL (160-400); Red Blood Count 5.73 X10*6/uL (4.60-5.80); Red Cell Distribution Width 14.8 % (11.0-16.0); White Blood Count 9.4 X10*3/uL (4.8-10.8)
[2023-09-15 16:54] LABS: Bacteria Urine None Seen (None Seen); Calcium Oxalate Crystals Urine Present; Hyaline Casts Urine 0-2 /LPF (0-2); Squamous Epithelial Cell Urine 0-2 /HPF (0-2); WBC Urine 0-5 /HPF (0-5)
[2023-09-15 16:55] LABS: RBC Urine 0-2 /HPF (0-2)
[2023-09-15 17:32] LABS: Folate 8.5 ng/mL (> or = 4.0); Vitamin B12 330 pg/mL (200-900)
[2023-09-15 17:41] LABS: Alanine Aminotransferase 17 U/L (0-40); Albumin Level 4.6 g/dL (3.5-5.0); Alkaline Phosphatase 96 U/L (39-117); Anion Gap 16 (12-20); Aspartate Amino Transferase 22 U/L (5-37); Bilirubin Total 0.7 mg/dL (0.0-1.0); Blood Urea Nitrogen 20 mg/dL (9-16); Calcium 9.9 mg/dL (8.4-10.2); Carbon Dioxide 25 mmol/L (22-29); Chloride 105 mmol/L (96-108); Estimated Glomerular Filt Rate > 60; Glucose Random 74 mg/dL (60-115); Potassium 4.2 mmol/L (3.3-5.1); Sodium 142 mmol/L (135-145); Total Protein 7.8 g/dL (6.5-8.0)
[2023-09-15 17:56] LABS: TSH reflex Free T4 2.96 uIU/mL (0.32-4.0)
== END 2023-09-15 13:52 | disposition home or self-care (01) ==
LOC: HO.HMGCLDS 13:51
PROVIDERS: PCP Nurse Practitioner Family; Visit Provider Nurse Practitioner Family
DX: G30.9 Alzheimer's disease, unspecified (principal); F02.80 Dementia in other diseases classified elsewhere, unspecified severity, without behavioral disturbance, psychotic disturbance, mood disturbance, and anxiety
CPT/HCPCS: 36415; 80053; 81001; 82607; 82746; 84443; 85025

== ENCOUNTER 2023-09-25 23:19 | Outpatient (AMB) | payer MEDICARE, SELFPAY ==
--- NOTE | 2023-09-25 15:23 | MHC.OFFVISPS ---
Intake Intake Visit Reasons: depression, agitation secondary to dementia Leather Belt Maker Required: No Allergies acetaminophen [Percocet] Adverse Reaction (Unknown, Verified 09/15/23 13:20) nausea, dry heaves oxycodone [Percocet] Adverse Reaction (Unknown, Verified 09/15/23 13:20) nausea, dry heaves Medication List - Last Reconciled 09/25/23 by Mckenzie Saravia APRN acetaminophen (Tylenol Extra Strength) 500 mg PO BID PRN aripiprazole (Abilify) 2 mg PO DAILY atorvastatin 20 mg PO DAILY 90 days cholecalciferol (vitamin D3) 25 mcg PO DAILY 90 days donepezil 10 mg PO DAILY 90 days famotidine 40 mg PO BEDTIME 90 days flu vac 2019 [id number](PF) 60 mcg (15 mcg x 4)/0.5 mL 0.5 mL IM DIRECTED levothyroxine 100 mcg PO DAILY 90 days loratadine (Claritin) 10 mg PO DAILY memantine 10 mg PO DAILY omeprazole 40 mg PO DAILY 90 days sertraline 200 mg (2 x 100 mg) PO DAILY 90 days HPI- Psychiatric Chief Complaint: depression, agitation secondary to dementia HPI Narrative: pt is here in office accompanied by sister Yair (and HCP). pt mood uobeat, affect bright, intermittently shows agitation when talking about how he can't drive and is limited in his activities . He sees his siblings several times a week and they plan activities for and with him. He is tolerating the abilify 2 mg daily without side effects; his sister Yair reports 2 episodes of him getting very agitated at home- she has a video from one sister of him tossing over a couch and table. no one was hurt in episode. We reviewed labs : TSH, B12, folate all normal. BUN high up to 20 . Pt is hydrating and he and sister report he drinks at least 4- 8 ounce bottles of water a day. no dizziness, no sedation. Past Psychiatric History: No IPLOC, no history of treatment with psychiatry or therapy in past; on zoloft 200mg daily with PCP Subjective Subjective Subjective Medication Compliance: Yes Side effects from medications: No Review of Systems Medical Review of Systems: unchanged Mental Status Exam Mental Status Exam Patient Appearance: Well Grooomed and Appropriate Patient Orientation: Person, Place and Situation Level of Consciousness: Awake and Alert Patient Behavior: Appropriate and Confused Behavior Comments: intermittently agitated tells jokes at times Mood Description: Happy and Labile (slightly ) Affect Description: Happy Patient Cognition Impaired: Yes Ability to Follow Directions: Fair Speech Pattern: Clear and Cofabulation Memory Description: Remote Impaired, Immediate Impaired, Fdc Impaired and Recent Impaired Hallucinations: None Delusions: Not Present Thought Process: Rumination Thought Content: positive for [place] Judgement: Fair (fair to poor- understand he needs to go by his sisters' rules for safety ) Assessment and Plan Assessment & Plan (1) Alzheimer's dementia with behavioral disturbance: Status: Acute Code(s): G30.9 - Alzheimer's disease, unspecified; F02.818 - Dementia in other diseases classified elsewhere, unspecified severity, with other behavioral disturbance (2) Depression, major, in partial remission: Status: Acute Qualifiers: Major depression recurrence: recurrent Qualified Code(s): F33.41 - Major depressive disorder, recurrent, in partial remission Code(s): F32.4 - Major depressive disorder, single episode, in partial remission Plan continue zoloft 200mg daily increase abilify to 5 mg daily return in 2 months at which time if stable will return to PCP for continued treatment Medications: New aripiprazole (Abilify) 5 mg PO DAILY 30 tabs 2RF Counseling and coordination of Care Medication management counseling: Effectiveness, Side effects, Dosing range, Duration, Drug interaction and Adherence Diagnosis and Prognosis Counseling: Accuracy of diagnosis, Prognosis over time, Impact of diagnosis on life functions, Impact of family relationship, Problematic behaviors secondary to diagnosis and Adequacy of current interventions Details: I spent 30 minutes reviewing the record, seeing the patient and documenting in the medical record. Counseling provided to the patient/caregiver as outlined below. Addressed patient/caregiver concerns regarding current medication regime including effective adherence. Addressed patient/caregiver concerns regarding diagnosis and prognosis including accuracy of diagnosis, prognosis over time, impact of diagnosis. Addressed patient/caregiver concerns regarding impact of recent stressors. [facility] Medical History Mixed Alzheimer's and vascular dementia Balance problem Vitamin D deficiency HTN (hypertension) Major depressive disorder Irregular heart rhythm Alzheimer disease Osteoarthritis of right shoulder Lumbar spondylosis Lumbar degenerative disc disease Anxiety GERD (gastroesophageal reflux disease) Hypothyroid Surgical History History of parathyroidectomy Family History Father CVD (cardiovascular disease) Mother Unknown family medical history Social History Housing: House Alcohol intake: current Alcohol intake frequency: holidays/special occasions only Patient Tobacco Use Status: Former Tobacco user Years Smoked: quit 40 years ago e-Cigarette/Vaping Use: Never Used Second Hand Smoke Exposure: No Current occupational status: retired Cognitive needs: No Hearing needs: Yes Vision needs: Yes Social History: x 7 yrs; lives wit daughter who has special needs; siblings are supportive; his HCP is sister Yair Substance History: etoh in past rarely now Trauma History: none known Coding Level of Care Code Est Pt Level 4 (12183) Diagnoses Alzheimer's dementia with behavioral disturbance G30.9; F02.818 Recurrent major depressive disorder, in partial remission F33.41 Major depression recurrence: recurrent
== END 2023-09-25 23:19 | disposition home or self-care (01) ==
LOC: HO.HOP 23:19
PROVIDERS: PCP Nurse Practitioner Family; Visit Provider Clinical Nurse Specialist Psychiatric/Mental Health
DX: G30.9 Alzheimer's disease, unspecified (principal); F02.818 Dementia in other diseases classified elsewhere, unspecified severity, with other behavioral disturbance; F33.41 Major depressive disorder, recurrent, in partial remission
CPT/HCPCS: 99214

== ENCOUNTER → 2023-09-25 23:19 | Outpatient (BNVA) | payer MEDICARE, SELFPAY | PROVIDERS: PCP Nurse Practitioner Family; Visit Provider Clinical Nurse Specialist Psychiatric/Mental Health | DX: G30.9 Alzheimer's disease, unspecified (principal); F02.818 Dementia in other diseases classified elsewhere, unspecified severity, with other behavioral disturbance; F33.41 Major depressive disorder, recurrent, in partial remission | CPT/HCPCS: 99212 ==

== ENCOUNTER 2023-12-03 14:12 | Outpatient (AMB) | payer MEDICARE, SELFPAY ==
--- NOTE | 2023-12-03 14:21 | A.OFFPSYCH_ITS ---
Intake Intake Visit Reasons: depression Regulatory Assistant Required: No Allergies acetaminophen [Percocet] Adverse Reaction (Unknown, Verified 09/15/23 13:20) nausea, dry heaves oxycodone [Percocet] Adverse Reaction (Unknown, Verified 09/15/23 13:20) nausea, dry heaves Medication List - Last Reconciled 12/03/23 by Mckenzie Saravia APRN acetaminophen (Tylenol Extra Strength) 500 mg PO BID PRN aripiprazole 5 mg PO DAILY atorvastatin 20 mg PO DAILY 90 days cholecalciferol (vitamin D3) 25 mcg PO DAILY 90 days donepezil 10 mg PO DAILY 90 days famotidine 40 mg PO BEDTIME 90 days flu vac 2020 [id number](PF) 60 mcg (15 mcg x 4)/0.5 mL 0.5 mL IM DIRECTED levothyroxine 100 mcg PO DAILY 90 days loratadine (Claritin) 10 mg PO DAILY memantine 10 mg PO DAILY omeprazole 40 mg PO DAILY 90 days sertraline 200 mg (2 x 100 mg) PO DAILY 90 days HPI- Psychiatric Chief Complaint: depression HPI Narrative: pt mood improved; he and sister agree he is calmer; he has better impulse control. He tolerates frustration more easily; no outbursts; sleep good; eating well. reminiscing in session about his . PHQ9= 8 and GAD7 = 6. no si or hi, no side effects. Past Psychiatric History: No IPLOC, no history of treatment with psychiatry or therapy in past; on zoloft 200mg daily with PCP Mental Status Exam Mental Status Exam Patient Appearance: Well Grooomed and Appropriate Patient Orientation: Person, Place, Time and Situation Level of Consciousness: Awake, Appropriate and Alert Patient Behavior: Appropriate Mood Description: Calm Affect Description: Calm Patient Cognition Impaired: Yes Speech Pattern: Clear and Appropriate Memory Description: Episodic Impaired and Recent Impaired Hallucinations: None Delusions: Not Present Thought Process: Intact Thought Content: positive for Intact Judgement: Fair Assessment and Plan Assessment & Plan (1) Alzheimer's dementia with behavioral disturbance: Status: Acute Code(s): G30.9 - Alzheimer's disease, unspecified; F02.818 - Dementia in other diseases classified elsewhere, unspecified severity, with other behavioral disturbance (2) Depression, major, in partial remission: Status: Acute Qualifiers: Major depression recurrence: recurrent Qualified Code(s): F33.41 - Major depressive disorder, recurrent, in partial remission Code(s): F32.4 - Major depressive disorder, single episode, in partial remission Plan continue current medication return in 3 months and if stable will refer back to PCP Medications: Refilled aripiprazole 5 mg PO DAILY 30 tabs 2RF sertraline 200 mg (2 x 100 mg) PO DAILY 90 days 180 tabs 2RF Counseling and coordination of Care Pt. Self Management counseling: Exercise, Sleep hygiene and Behavior activation Medication management counseling: Effectiveness, Side effects, Dosing range, Duration, Drug interaction and Adherence Diagnosis and Prognosis Counseling: Accuracy of diagnosis, Prognosis over time, Impact of diagnosis on life functions, Impact of family relationship, Problematic behaviors secondary to diagnosis and Adequacy of current interventions Details: I spent 30 minutes reviewing the record, seeing the patient and documenting in the medical record. Counseling provided to the patient/caregiver as outlined below. Addressed patient/caregiver concerns regarding current medication regime including effective adherence. Addressed patient/caregiver concerns regarding diagnosis and prognosis including accuracy of diagnosis, prognosis over time, impact of diagnosis. Addressed patient/caregiver concerns regarding impact of recent stressors. [facility] Medical History Mixed Alzheimer's and vascular dementia Balance problem Vitamin D deficiency HTN (hypertension) Major depressive disorder Irregular heart rhythm Alzheimer disease Osteoarthritis of right shoulder Lumbar spondylosis Lumbar degenerative disc disease Anxiety GERD (gastroesophageal reflux disease) Hypothyroid Surgical History History of parathyroidectomy Family History Father CVD (cardiovascular disease) Mother Unknown family medical history Social History Housing: House Alcohol intake: current Alcohol intake frequency: holidays/special occasions only Patient Tobacco Use Status: Former Tobacco user Years Smoked: quit 40 years ago e-Cigarette/Vaping Use: Never Used Second Hand Smoke Exposure: No Current occupational status: retired Cognitive needs: No Hearing needs: Yes Vision needs: Yes Social History: x 7 yrs; lives wit daughter who has special needs; siblings are supportive; his HCP is sister Toshia Substance History: etoh in past rarely now Trauma History: none known Coding Level of Care Code Est Pt Level 4 (07323) Diagnoses Alzheimer's dementia with behavioral disturbance G30.9; F02.818 Recurrent major depressive disorder, in partial remission F33.41 Major depression recurrence: recurrent
== END 2023-12-03 14:24 | disposition home or self-care (01) ==
LOC: HO.HOP 14:12
PROVIDERS: PCP Nurse Practitioner Family; Visit Provider Clinical Nurse Specialist Psychiatric/Mental Health
DX: G30.9 Alzheimer's disease, unspecified (principal); F02.818 Dementia in other diseases classified elsewhere, unspecified severity, with other behavioral disturbance; F33.41 Major depressive disorder, recurrent, in partial remission
CPT/HCPCS: 99214

== ENCOUNTER → 2023-12-03 14:12 | Outpatient (BNVA) | payer MEDICARE, SELFPAY | PROVIDERS: PCP Nurse Practitioner Family; Visit Provider Clinical Nurse Specialist Psychiatric/Mental Health | DX: F33.41 Major depressive disorder, recurrent, in partial remission (principal); G30.9 Alzheimer's disease, unspecified; F02.818 Dementia in other diseases classified elsewhere, unspecified severity, with other behavioral disturbance | CPT/HCPCS: 99212 ==

== ENCOUNTER 2024-01-19 15:10 | Outpatient (AMB) | payer MEDICARE, SELFPAY ==
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
[2024-01-19 15:29] VITALS: BP 110/70; PULSE 62; O2SAT 94; BMI 27.9
== END 2024-01-19 16:21 | disposition home or self-care (01) ==
PROVIDERS: PCP Nurse Practitioner Family; Visit Provider Nurse Practitioner Family
DX: R25.1 Tremor, unspecified (principal); G30.9 Alzheimer's disease, unspecified; F02.818 Dementia in other diseases classified elsewhere, unspecified severity, with other behavioral disturbance; Z63.9 Problem related to primary support group, unspecified
CPT/HCPCS: 99214

== ENCOUNTER 2024-02-29 14:00 | Outpatient (AMB) | payer MEDICARE, SELFPAY ==
--- NOTE | 2024-02-29 14:07 | A.OFFPSYCH_ITS ---
Intake Intake Visit Reasons: depression Information Technology Director Required: No Allergies acetaminophen [Percocet] Adverse Reaction (Unknown, Verified 01/19/24 15:29) nausea, dry heaves oxycodone [Percocet] Adverse Reaction (Unknown, Verified 01/19/24 15:29) nausea, dry heaves Medication List - Last Reconciled 02/29/24 by Mckenzie Saravia APRN acetaminophen (Tylenol Extra Strength) 500 mg PO BID PRN aripiprazole 5 mg PO DAILY atorvastatin 20 mg PO DAILY 90 days carbidopa-levodopa 25-100 mg 1 tab PO TID cholecalciferol (vitamin D3) 25 mcg PO DAILY 90 days donepezil 10 mg PO DAILY 90 days famotidine 40 mg PO BEDTIME 90 days flu vac 2020 [id number](PF) 60 mcg (15 mcg x 4)/0.5 mL 0.5 mL IM DIRECTED levothyroxine 100 mcg PO DAILY 90 days loratadine (Claritin) 10 mg PO DAILY memantine 10 mg PO DAILY omeprazole 40 mg PO DAILY 90 days sertraline 200 mg (2 x 100 mg) PO DAILY 90 days HPI- Psychiatric Chief Complaint: depression HPI Narrative: Patient's mood is improved. He is less irritable, less depressed, and he is not losing his temper. He is arguing less with his daughter. He is not having outbursts at home. He is beginning to accept his inability to drive. His PHQ-9 is 9 his DEMIAN-7 is 7. He is not reporting any side effects from the medication. He reports slight dizziness when he wakes up in the morning and if he moves too quickly, but his sister says this is a long standing problem for many years. he has taught himself and continues to practice moving more slowly. He was recently diagnosed with early Parkinson's and started on Sinemet 25/100 mg t.i.d. on February 26. Past Psychiatric History: No IPLOC, no history of treatment with psychiatry or therapy in past; on zoloft 200mg daily with PCP Subjective Subjective Subjective Medication Compliance: Yes Side effects from medications: No Review of Systems Medical Review of Systems: unchanged Mental Status Exam Mental Status Exam Patient Appearance: Appropriate Patient Orientation: Person, Place, Time and Situation Level of Consciousness: Awake and Appropriate Patient Behavior: Appropriate and Cooperative Mood Description: Happy Affect Description: Cheerful Patient Cognition Impaired: No Ability to Follow Directions: Good Speech Pattern: Clear and Cofabulation Memory Description: Remote Impaired and Detention Impaired Hallucinations: None Delusions: Not Present Thought Process: Intact and Goal Oriented Thought Content: positive for Intact and positive for Loose Associations Judgement: Fair Assessment and Plan Assessment & Plan (1) Depression, major, in partial remission: Status: Acute Qualifiers: Major depression recurrence: recurrent Qualified Code(s): F33.41 - Major depressive disorder, recurrent, in partial remission Code(s): F32.4 - Major depressive disorder, single episode, in partial remission (2) Alzheimer's dementia with behavioral disturbance: Status: Acute Code(s): G30.9 - Alzheimer's disease, unspecified; F02.818 - Dementia in other diseases classified elsewhere, unspecified severity, with other behavioral disturbance Plan continue zoloft 200mg daily continue abilify 5m g daily refer back to PCP Medications: Refilled aripiprazole 5 mg PO DAILY 90 tabs 2RF sertraline 200 mg (2 x 100 mg) PO DAILY 90 days 180 tabs 1RF Counseling and coordination of Care Pt. Self Management counseling: Maintenance-social rhythm, Sleep hygiene, Behavior activation, General coping skills and Problem solving Medication management counseling: Effectiveness, Side effects, Dosing range, Duration, Drug interaction and Adherence Diagnosis and Prognosis Counseling: Accuracy of diagnosis, Prognosis over time, Impact of diagnosis on life functions, Impact of family relationship, Problematic behaviors secondary to diagnosis and Adequacy of current interventions Details: I spent 40 minutes reviewing the record, seeing the patient and documenting in the medical record. Counseling provided to the patient/caregiver as outlined below. Addressed patient/caregiver concerns regarding current medication regime including effective adherence. Addressed patient/caregiver concerns regarding diagnosis and prognosis including accuracy of diagnosis, prognosis over time, impact of diagnosis. Addressed patient/caregiver concerns regarding impact of recent stressors. [facility], [facility] Medical History (Updated 03/02/24 @ 13:42 by HOME Crowe) Barretts esophagus Mixed Alzheimer's and vascular dementia Balance problem Vitamin D deficiency HTN (hypertension) Major depressive disorder Irregular heart rhythm Alzheimer disease Osteoarthritis of right shoulder Lumbar spondylosis Lumbar degenerative disc disease Anxiety GERD (gastroesophageal reflux disease) Hypothyroid Surgical History History of parathyroidectomy Family History Father CVD (cardiovascular disease) Mother Unknown family medical history Social History Housing: House Alcohol intake: current Alcohol intake frequency: holidays/special occasions only Patient Tobacco Use Status: Former Tobacco user Years Smoked: quit 40 years ago e-Cigarette/Vaping Use: Never Used Second Hand Smoke Exposure: No Current occupational status: retired Cognitive needs: No Hearing needs: Yes Vision needs: Yes Social History: x 7 yrs; lives wit daughter who has special needs; siblings are supportive; his HCP is sister Toshia Substance History: etoh in past rarely now Trauma History: none known Coding Level of Care Code Est Pt Level 4 (05422) Diagnoses Recurrent major depressive disorder, in partial remission F33.41 Major depression recurrence: recurrent Alzheimer's dementia with behavioral disturbance G30.9; F02.818
== END 2024-02-29 15:06 | disposition home or self-care (01) ==
LOC: HO.HOP 14:00
PROVIDERS: PCP Nurse Practitioner Family; Visit Provider Clinical Nurse Specialist Psychiatric/Mental Health
DX: F33.41 Major depressive disorder, recurrent, in partial remission (principal); G30.9 Alzheimer's disease, unspecified; F02.818 Dementia in other diseases classified elsewhere, unspecified severity, with other behavioral disturbance
CPT/HCPCS: 99214

== ENCOUNTER → 2024-02-29 14:00 | Outpatient (BNVA) | payer MEDICARE, SELFPAY | PROVIDERS: PCP Nurse Practitioner Family; Visit Provider Clinical Nurse Specialist Psychiatric/Mental Health | DX: F32.A Depression, unspecified (principal); G30.9 Alzheimer's disease, unspecified; F02.818 Dementia in other diseases classified elsewhere, unspecified severity, with other behavioral disturbance; G20.A1 Parkinson's disease without dyskinesia, without mention of fluctuations | CPT/HCPCS: 99212 ==

== ENCOUNTER 2024-05-24 13:05 | Outpatient (AMB) | payer MEDICARE, SELFPAY ==
--- NOTE | 2024-05-24 13:06 | A.OFFPC_ITS ---
Vital Signs 05/24/24 13:07 Height 6 ft 2 in Weight 218 lb BMI 28.0 BP 110/70 Blood Pressure Location Rt brachial Position Sitting Pulse 67 Pulse Source Pulse Oximeter Pulse Oximetry (%) 96 Intake Visit Reasons: Office visit Intake Note: pt is here for f.up Survey Coordinator Required: No Accompanied by: Self / Same As Patient Allergies acetaminophen [Percocet] Adverse Reaction (Unknown, Verified 05/24/24 13:30) nausea, dry heaves oxycodone [Percocet] Adverse Reaction (Unknown, Verified 05/24/24 13:30) nausea, dry heaves Medication List - Last Reconciled 05/24/24 by Konrad Marte, WEB SITE DEVELOPER- acetaminophen (Tylenol Extra Strength) 500 mg PO BID PRN aripiprazole 5 mg PO DAILY atorvastatin 20 mg PO DAILY 90 days carbidopa-levodopa 25-100 mg 1 tab PO TID cholecalciferol (vitamin D3) 25 mcg PO DAILY 90 days donepezil 10 mg PO DAILY 90 days famotidine 40 mg PO BEDTIME 90 days levothyroxine 100 mcg PO DAILY 90 days loratadine (Claritin) 10 mg PO DAILY memantine 10 mg PO DAILY omeprazole 40 mg PO DAILY 90 days sertraline 200 mg (2 x 100 mg) PO DAILY 90 days Tobacco use date assessed: 05/24/24 Fall risk assessment: No Falls in past year Last assessed Fall Risk: 05/24/24 Dental Screening Dental Screen Date: 05/24/24 Did you have a dental visit in the last 12 months?: Yes Did you have a dental problem in the last 6 months where you did not have access to dental care?: No Was dental information given to patient?: Patient has dentist HPI Office visit HPI Details Chief Complaint Follow-up for Parkinson's Disease and medication regimen noncompliance. History of Present Illness The patient is a 73-year-old male presenting with a historical diagnosis of Parkinson's Disease/dementia. He was previously seen by a neurologist (recently), who initiated treatment with carbidopa-levodopa specifically for tremor management. The patient has dementia, but it is described as functional. He was living with his daughter, but due to a hostile environment caused by her psychological issues, there has been a change in living arrangements. [facility] elsewhere, allowing for a quieter home environment for the pt. His healthcare proxy and another sister provide daily check-ins, and a living poultry hatchery manager visits twice weekly. A homemaker assists with household tasks. The primary issue noted this visit is his noncompliance with nighttime medications due to falling asleep before his medication alarm. Efforts to adjust the timing of these doses are planned to improve adherence. Social History - [facility] and has regular check-ins by family members. - Previously lived with his daughter, anna call was reported as a hostile environment due to her psychological issues. - Has a healthcare proxy who is his [facility]. - Has a living poultry hatchery manager twice weekly an d a homemaker assisting as needed. Health Maintenance Review of Systems Physical Exam General: Cooperative, healthy appearing, comfortable, no acute distress and well developed Orientation: Patient oriented x3 Limitations: No limitations Head: Normal to inspection Ears: Hearing grossly normal bilaterally Nose: Normal external nose present Face and sinus: Normal facial exam Eyes: Appearance normal, both eyes and all related structures Neck: Normal visual inspection and Yes full ROM Respiratory: Normal respiratory effort and able to speak in complete sentences. Clear to auscultation bilaterally Cardiovascular: Regular rate and rhythm. Normal S1 and S2 GI: Normal to inspection. Soft to palpation and nontender Skin: No rashes or lesions noted Neuro: Patient oriented x3 Extremities: Normal to inspection Results Plan - Medication management for Parkinson's Disease: Consider adjusting the timing of the carbidopa-levodopa dose to align with the patient's dinner schedule to address the noncompliance issue due to his early sleep cycle. - Continue to involve the healthcare pro xy and monitor any changes in the patient's cognitive or physical status. - Schedule follow-up labs as discussed t o monitor ongoing treatment efficacy and side effects. Patient was informed and verbally consented to the use of an ambient scribe for clinic note documentation during this visit. Discussion Notes I have discussed with the patient and his healthcare proxy the importance of medication adherence, particularly given the patient's early sleep schedule and the timing of the carbidopa-levodopa doses. We will explore options for adjust ing the schedule to ensure he takes his medication as prescribed. I also reiterated the plan to conduct follow-up laboratory tests to manage his Parkinson's Disease treatment effectively. We acknowledged the improved living situation, which seems to support better management of his condition. I have advised them to maintain open communication with the healthcare proxy and other supporting family members. Patient Instructions - Take medications daily as prescribed, ensuring nighttime doses are taken closer to dinner time. - Healthcare proxy to coordinate with [facility] [place] to adjust medication reminders. - Monitor for any changes in health and report them during the follow-up visit. - Continue the support from the healthca re proxy, poultry hatchery manager, and homemaker as needed. PFS Medical History Barretts esophagus Mixed Alzheimer's and vascular dementia Balance problem Vitamin D deficiency HTN (hypertension) Major depressive disorder Irregular heart rhythm Alzheimer disease Osteoarthritis of right shoulder Lumbar spondylosis Lumbar degenerative disc disease Anxiety GERD (gastroesophageal reflux disease) Hypothyroid Surgical History History of parathyroidectomy Family History Father CVD (cardiovascular disease) Mother Unknown family medical history Social History Housing: House Alcohol intake: current Alcohol intake frequency: holidays/special occasions only Patient Tobacco Use Status: Former Tobacco user Years Smoked: quit 40 years ago e-Cigarette/Vaping Use: Never Used Second Hand Smoke Exposure: No service: No Current occupational status: retired Cognitive needs: No Hearing needs: Yes Vision needs: Yes Questionnaire PHQ-9 Over the last 2 weeks, how often have you been bothered by any of the following problems? 1. Little interest or pleasure in doing things: several days 2. Feeling down, depressed, or hopeless: several days 3. Trouble falling or staying asleep, or sleeping too much: several days 4. Feeling tired or having little energy: several days 5. Poor appetite or overeating: not at all 6. Feeling bad about yourself - or that you are a failure or have let yourself or your family down: several days 7. Trouble concentrating on things, such as reading the newspaper or watching television: several days 8. Moving or speaking so slowly that other people could have noticed. Or the opposite - being so fidgety or restless that you have been moving around a lot more than usual: several days 9. Thoughts that you would be better off or of hurting yourself in some way: not at all Total score: 7 Depression Screening Interpretation: Negative (pt denies any si or hi, he is in good spirits) Depression Screening Done: Yes 49672 - PHQ-9 Billing: Yes Source: Developed by Drs. Robbie Anderson, Elizabeth Hilario, Cristofer Sánchez and colleagues, with an educational mansoor from [employer]. Thrive Questionnaire Date Thrive assessed: 05/24/24 I am a: Parent/Caregiver What is your living situation today?: I have a steady place to live Within the past 12 months, did the food you bought not last and you didn't have the money to get more?: Never true Within the past 12 months, did you worry whether your food would run out before you got money to buy more?: Never true Do you have trouble paying for medicines?: No Do you have trouble getting transportation to medical appointments?: No Do you have trouble paying your heating and electricity bill?: No Do you have trouble taking care of your child, family member or friend?: No Do you have trouble with day-to-day activities such as bathing, preparing meals, shopping, managing finances, etc.?: Yes Are you currently unemployed and looking for a job?: No Are you interested in more education?: No Please select the resources that you would like help with: None Currently or been in a relationship where the following occur: I choose not to answer THRIVE Score: 0 AUDIT C Alcohol Use Questionnaire (AUDIT-C) 1. How often do you have a drink containing alcohol?: Monthly or less 2. How many drinks containing alcohol do you have on a typical day when you are drinking?: 1 or 2 3. How often do you have six or more drinks on one occasion?: Never Total Score: 1 Score Reviewed/Action Taken: Yes DEMIAN-7 AMB Questionnaire DEMIAN-7 Date DEMIAN - 7 assessed: 05/24/24 Feeling nervous, anxious, or on edge: 1 = Several days Not being able to stop or control worryin = Several days Worrying too much about different things: 1 = Several days Trouble relaxin = Several days Being so restless that it is hard to sit still: 1 = Several days Becoming easily annoyed or irritable: 1 = Several days Feeling afraid as if something awful might happen: 1 = Several days Total DEMIAN-7 score (0-4 normal; 5-9 mild; 10-14 moderate; 15-21 severe): 7 Source: Developed by Drs. Robbie Anderson, Elizabeth Hilario, Cristofer Sánchez and colleagues, with an educational mansoor from [employer] DEMIAN-7 Assessment Billing DEMIAN-7 Assessment Tool: DEMIAN-7 Assessment 00262 Physical exam (Primary Care) Vital Signs: Last Vital Signs Pulse 67 05/24/24 13:07 BP 110/70 05/24/24 13:07 Pulse Ox 96 05/24/24 13:07 BMI result Body Mass Index 28.0 Tobacco/Smoking Status: Tobacco use Status Tobacco use date assessed 05/24/24 05/24/24 13:08 Patient Tobacco Use Status Former Tobacco user 05/24/24 13:08 e-Cigarette/Vaping Use Never Used 05/24/24 13:08 PHQ-9: PHQ-9 Score PHQ-9: Total score 7 05/24/24 13:08 Depression Screening Interpretation: Negative (pt denies any si or hi, he is in good spirits) Thrive Assessment: Date of Thrive Assessment Date Thrive assessed 05/24/24 05/24/24 13:08 Currently or been in a relationship where the following occur: I choose not to answer Coding Level of Care Code Est Pt Level 3 (58377) Diagnoses Dyslipidemia E78.5 Tremor of both hands R25.1 Parkinson disease G20.A1 Screening PSA (prostate specific antigen) Z12.5 Additional Codes DEMIAN-7 Assessment Billing - DEMIAN-7 Assessment Tool: DEMIAN-7 Assessment 44249 ([id number]) PHQ-9 - 68922 - PHQ-9 Billing: Yes ([id number]) Assessment & Plan Assessment & Plan (1) Dyslipidemia: Code(s): E78.5 - Hyperlipidemia, unspecified Category: Medical (2) Tremor of both hands: Code(s): R25.1 - Tremor, unspecified Category: Medical (3) Parkinson disease: Code(s): G20.A1 - Parkinson's disease without dyskinesia, without mention of fluctuations Category: Medical (4) Screening PSA (prostate specific antigen): Code(s): Z12.5 - Encounter for screening for malignant neoplasm of prostate Category: Medical Plan . Orders: Orders TSH reflex Free T4 Today E78.5 - Hyperlipidemia, unspecified, G20.A1 - Parkinson's disease without dyskinesia, without mention of fluctuations, R25.1 - Tremor, unspecified Lipid Panel Today E78.5 - Hyperlipidemia, unspecified, G20.A1 - Parkinson's disease without dyskinesia, without mention of fluctuations, R25.1 - Tremor, unspecified Complete Blood Count Auto Diff Today E78.5 - Hyperlipidemia, unspecified, G20.A1 - Parkinson's disease without dyskinesia, without mention of fluctuations, R25.1 - Tremor, unspecified Comprehensive [place]. Panel Fast Today E78.5 - Hyperlipidemia, unspecified, G20.A1 - Parkinson's disease without dyskinesia, without mention of fluc tuations, R25.1 - Tremor, unspecified UA CC w/rflx Micro + Cult Today E78.5 - Hyperlipidemia, unspecified, G20.A1 - Parkinson's disease without dyskinesia, without mention of fluctuations, R25.1 - Tremor, unspecified Prostate Specific Antigen Scr Today Z12.5 - Encounter for screening for malignant neoplasm of prostate
[2024-05-24 13:07] VITALS: BP 110/70; PULSE 67; O2SAT 96; BMI 28.0
== END 2024-05-24 13:48 | disposition home or self-care (01) ==
PROVIDERS: PCP Nurse Practitioner Family; Visit Provider Nurse Practitioner Family
DX: E78.5 Hyperlipidemia, unspecified (principal); G20.A1 Parkinson's disease without dyskinesia, without mention of fluctuations; Z12.5 Encounter for screening for malignant neoplasm of prostate

== ENCOUNTER → 2024-05-24 13:05 | Outpatient (BNVA) | payer MEDICARE, SELFPAY | PROVIDERS: PCP Nurse Practitioner Family; Visit Provider Nurse Practitioner Family | DX: G20.A1 Parkinson's disease without dyskinesia, without mention of fluctuations (principal); F02.80 Dementia in other diseases classified elsewhere, unspecified severity, without behavioral disturbance, psychotic disturbance, mood disturbance, and anxiety; E78.5 Hyperlipidemia, unspecified; Z91.148 Patient's other noncompliance with medication regimen for other reason | CPT/HCPCS: 96127; 99212 ==

== ENCOUNTER 2024-06-09 14:12 | Outpatient (AMB) | payer MEDICARE, SELFPAY ==
[2024-06-09 14:29] VITALS: BP 130/84; TEMP 36.4
--- NOTE | 2024-06-09 14:29 | MHC.OFFWIV ---
Intake Vital Signs 06/09/24 14:29 Weight 218 lb BP 130/84 Blood Pressure Location Rt brachial Position Sitting Temp 97.5 F Temp Source Oral Intake Visit Reasons: EP vomiting, can't keep anything down Intake Note: Patient here for vomiting that has been present for a couple of days. Patient Tobacco Use Status: Former Tobacco user Allergies acetaminophen [Percocet] Adverse Reaction (Unknown, Verified 06/09/24 14:30) nausea, dry heaves oxycodone [Percocet] Adverse Reaction (Unknown, Verified 06/09/24 14:30) nausea, dry heaves Do you need a note to return to daycare/school/sports/work: No HPI HPI Comments History of Present Illness Details 73 y/o male patient who presents to the walk in clinic with c/o Nausea and Vomiting for 5 days. Pt reports unable to keep anything, he has been hydrating well. He has poor appetite. 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 Balance problem Vitamin D deficiency HTN (hypertension) Major depressive disorder Irregular heart rhythm Alzheimer disease Osteoarthritis of right shoulder Lumbar spondylosis Lumbar degenerative disc disease Anxiety GERD (gastroesophageal reflux disease) Hypothyroid Surgical History History of parathyroidectomy Family History Father CVD (cardiovascular disease) Mother Unknown family medical history Social History Housing: House Alcohol intake: current Alcohol intake frequency: holidays/special occasions only Patient Tobacco Use Status: Former Tobacco user Years Smoked: quit 40 years ago e-Cigarette/Vaping Use: Never Used Second Hand Smoke Exposure: No service: No Current occupational status: retired Cognitive needs: No Hearing needs: Yes Vision needs: Yes Review of Systems Const All systems reviewed & are unremarkable except as noted in HPI and below Physical Exam Vital Signs: Last Vital Signs Temp 97.5 F 06/09/24 14:29 BP 130/84 06/09/24 14:29 Const General: cooperative, no acute distress and ill appearing acutely; No comfortable Orientation/consciousness: patient oriented x3 Resp Effort & Inspection: normal respiratory effort and able to speak in complete sentences Auscultation: clear to auscultation bilaterally Cardio Heart sounds: S1 normal heart sound present and S2 normal heart sound present Neuro General: patient oriented x3 Assessment & Plan Assessment & Plan (1) Nausea and vomiting in adult: Code(s): R11.2 - Nausea with vomiting, unspecified Plan: Advised Pt to go to Emergency room due to his condition. He is unable to hydrate or eat any solids, might benefit taking IV fluids His family members will bring him to ED today. Coding Level of Care Code Est Pt Level 3 (92648) Diagnoses Nausea and vomiting in adult R11.2 Time Spent (min) 15
--- OUTSIDE RECORDS SUMMARY | 2024-06-09 17:59 | XMS_ITS | Clinical Summary ---
Author Organization [employer] [facility] ity Address [address] [place] [address] Care Team Providers Care Mycology Teacher Name Role Phone Dino Holland MD Primary Care Provider Social History Tobacco Use Types Packs/Day Years Used Date Smoking Tobacco: Never Assessed Sex and Gender Information Value Date Recorded Sex Assigned at Not on file Gender Identity Not on file Sexual Orientation Not on file Plan of Treatment Health Maintenance Due Date Last Done Comments DTaP,Tdap,and Td Vaccines (1 - Tdap) 1969 Zoster Vaccines (1 of 2) 2000 Pneumococcal Vaccine: 65+ Ye ars (1 of 1 - PCV) 10/19/2015 Abdominal Aortic Aneurysm (A AA) Screen 04/13/2022 Cholesterol Screening (Lipid Panel) 04/13/2022 Colorectal Cancer Screening: Colonoscopy 04/13/2022 Depression Screening 04/13/2022 Falls Risk Assessment 04/13/2022 Hepatitis C Screening 04/13/2022 Social Influencers of Health Screening 04/13/2022 COVID-19 Vaccine (1 - 2023-2 5 season) 2024 Influenza Vaccine (#1) 2024 RSV Immunization Patients 60 + Years Old (1 - 1-dose 75+ series) 2025 HIB Vaccines Aged Out No longer eligi ble based on patient's age to complete this topic HPV Vaccines Aged Out No longer eligi ble based on patient's age to complete this topic Hepatitis A Vaccines Aged Out No long er eligible based on patient's age to complete this topic Hepatitis B Vaccines Aged Out No long er eligible based on patient's age to complete this topic IPV Vaccines Aged Out No longer eligi ble based on patient's age to complete this topic MMR Vaccines Aged Out No longer eligi ble based on patient's age to complete this topic Meningococcal ACWY Vaccine Aged Out N o longer eligible based on patient's age to complete this topic RSV Immunization Patients Un stephanie 20 months Aged Out No longer eligible b ased on patient's age to complete this topic Varicella Vaccines Aged Out No longer eligible based on patient's age to complete this topic Advance Directives Documents on File Type Date Recorded Patient Parts And Service Manager Expl anation Health Care Decision (hx) 01/29/2024 [facility] Care Teams Mycology Teacher Relationship Specialty Start Date End Date Dino Holland MD [address] [place] [address] Dr [address] [place] PCP - General Internal Medicine 11/12/16
== END 2024-06-09 15:15 | disposition home or self-care (01) ==
PROVIDERS: PCP Nurse Practitioner Family; Visit Provider Nurse Practitioner Family
DX: R11.2 Nausea with vomiting, unspecified (principal)

== ENCOUNTER 2024-06-09 15:27 | Emergency (ER) | payer MEDICARE, SELFPAY ==
--- NOTE | ~2024-06-09 | CT_ITS ---
CLINICAL HISTORY: pain CT abdomen and pelvis with contrast Comparison: US - ABDOMEN ULTRASOUND [id number] - 05/16/18 10:05 EST Findings: No consolidation or effusion. Coronary artery calcifications are present. The gallbladder and solid organs are within normal limits. No hydronephrosis or hydroureter. No bowel obstruction, pneumoperitoneum, or pneumatosis. Pelvic contents unremarkable. Small, fat containing right inguinal hernia. No bladder wall thickening. Normal appendix. No acute fracture visualized. There is minimal grade 1 anterolisthesis of L4 on L5. Multilevel degenerative central canal stenosis present at the lumbar spine, greatest at L4-L5. IMPRESSION: 1. No acute inflammatory process identified within the abdomen or pelvis. This document has been electronically signed by: Jaquan Bush MD on 06/09/2024 22:12:30
--- NOTE | 2024-06-09 15:34 | ECG_ITS ---
Test Reason : pain Blood Pressure : */* mmHG Vent. Rate : 66 BPM Atrial Rate : 66 BPM P-R Int : 164 ms QRS Dur : 104 ms QT Int : 456 ms P-R-T Axes : 87 -16 26 degrees QTcB Int : 478 ms Sinus rhythm with Premature atrial complexes Incomplete right bundle branch block Borderline ECG No previous ECGs available Referred By: Silvestre Flynn Electronically Signed By: JANIS SEO
--- NOTE | 2024-06-09 15:34 | ED.GENADULT ---
HPI - General Adult General Chief complaint: Nausea/Vomiting/Diarrhea Stated complaint: Vomiting, headache Time Seen by Provider: 06/09/24 19:59 Source: patient and family Limitations: other (Dementia) History of Present Illness ED Provider: Debbie Lucero PA-C HPI narrative: 73-year-old male with a history of Parkinson's disease, dementia, depression, hyperlipidemia, hypothyroidism, presents with nausea vomiting diarrhea since yesterday. Patient has been complaining of abdominal cramping, there has been no objective fevers. No sick contacts with same symptoms. The patient has not been on antibiotics, has not traveled recently, has not been hospitalized. Related Data Home Medications ?Medication ?Instructions ?Recorded ?Confirmed loratadine 10 mg tablet (Claritin) 10 mg PO DAILY 12/12/20 05/24/24 acetaminophen 500 mg tablet 500 mg PO BID PRN 08/06/22 05/24/24 (Tylenol Extra Strength) carbidopa 25 mg-levodopa 100 mg 1 tab PO TID 02/29/24 05/24/24 tablet Previous Rx's ?Medication ?Instructions ?Recorded omeprazole 40 mg capsule,delayed 40 mg PO DAILY 90 days #90 caps 08/14/23 release atorvastatin 20 mg tablet 20 mg PO DAILY 90 days #90 tabs 10/01/23 cholecalciferol (vitamin D3) 25 25 mcg PO DAILY 90 days #90 caps 10/01/23 mcg (1,000 unit) capsule levothyroxine 100 mcg tablet 100 mcg PO DAILY 90 days #90 tabs 10/01/23 famotidine 40 mg tablet 40 mg PO BEDTIME 90 days #90 tabs 10/22/23 donepezil 10 mg tablet 10 mg PO DAILY 90 days #90 tabs 11/20/23 sertraline 100 mg tablet 200 mg (2 x 100 mg) PO DAILY 90 02/29/24 days #180 tabs aripiprazole 5 mg tablet 5 mg PO DAILY #30 tabs 03/04/24 memantine 10 mg tablet 10 mg PO DAILY #90 tabs 06/02/24 dicyclomine 20 mg tablet 20 mg PO BID PRN diarrhea #6 tabs 06/09/24 ondansetron HCl 4 mg tablet 4 mg PO Q8H PRN nausea and 06/09/24 vomiting #10 tabs Allergies Allergy/AdvReac Type Severity Reaction Status Date / Time acetaminophen [Percocet] AdvReac Unknown nausea, Verified 06/09/24 15:36 dry heaves oxycodone [Percocet] AdvReac Unknown nausea, Verified 06/09/24 15:36 dry heaves Review of Systems Review of Systems: Yes all other systems are reviewed and are negative Constitutional: Constitutional: Denies fatigue, Denies fever(s) and Reports malaise Cardiovascular: Cardiovascular: Denies chest pain and Denies dyspnea Respiratory: Respiratory: Denies cough and Denies dyspnea Gastrointestinal: Gastrointestinal: Reports abdominal pain, Reports GI cramping, Reports diarrhea, Reports nausea and Reports vomiting Endocrine: Endocrine: Denies fatigue PMFSH Past Medical History Attestation statement: The following information was validated with the patient. Medical History (Updated 06/09/24 @ 22:32 by SLIME Iglesias) Nausea and vomiting in adult Barretts esophagus Mixed Alzheimer's and vascular dementia Balance problem Vitamin D deficiency HTN (hypertension) Major depressive disorder Irregular heart rhythm Alzheimer disease Osteoarthritis of right shoulder Lumbar spondylosis Lumbar degenerative disc disease Anxiety GERD (gastroesophageal reflux disease) Hypothyroid Surgical History History of parathyroidectomy Family History Family History Father CVD (cardiovascular disease) Mother Unknown family medical history Social History Social History Housing: House Alcohol intake: current Alcohol intake frequency: holidays/special occasions only Patient Tobacco Use Status: Former Tobacco user Years Smoked: quit 40 years ago e-Cigarette/Vaping Use: Never Used Second Hand Smoke Exposure: No Advance Directives: Yes Advance Directives on File: Yes Advance Directives Date on File: 12/20/22 service: No Current occupational status: retired Cognitive needs: No Hearing needs: Yes Vision needs: Yes Physical Exam ED Vital Signs: Vital Signs - 24 hr 06/09/24 15:35 06/09/24 19:31 Temperature 97.5 F 97.4 F Pulse Rate 62 55 Respiratory Rate 18 18 Blood Pressure 140/86 H 154/77 H Pulse Oximetry 100 97 Oxygen Delivery Method Room Air Room Air BMI result Body Mass Index 27.7 Const Other: Alert Orientation/consciousness: patient oriented x3 HENMT Other: Dry oral mucosa Resp Effort & Inspection: normal respiratory effort Cardio Other: Normal peripheral perfusion GI Other: Abdomen is soft, nondistended nontender no guarding Skin Other: Warm dry no rash Neuro General: patient oriented x3, no focal motor deficits and CN's II-XI intact bilaterally Psych Other: Cooperative Course Course Course Narrative: RME, this is a rapid medical exam performed by Giancarlo Flynn please refer to primary provider for complete H&P- 73-year-old male past medical history significant for Parkinson's disease, dyslipidemia, hypothyroid presents for evaluation of vomiting for the last 4 days. He has had associated abdominal pain and headaches. Plan for labs, viral swabs and an EKG. Medications Administered Discontinued Medications Generic Name Dose Route Start Last Admin Trade Name Freq PRN Reason Stop Dose Admin Sodium Chloride 1,000 mls @ 999 mls/hr 06/09/24 20:45 06/09/24 20:53 Ns IV 06/09/24 21:45 999 mls/hr .Q1H1M RIO Administration Iohexol 85 ml 06/09/24 21:15 06/09/24 21:15 Iohexol 350 Mg/Ml 100 Ml Infus..Btl IV 06/09/24 21:16 85 ml ONCE ONE Administration Ondansetron HCl 4 mg 06/09/24 20:37 06/09/24 20:53 Ondansetron Hcl 4 Mg/2 Ml Vial IVPUSH 06/09/24 20:38 4 mg ONCE ONE Administration Medical Decision Making Medical Decision Making [facility] Narrative: 73-year-old male with a history of Parkinson's disease, dementia, depression, hyperlipidemia, hypothyroidism, presents with nausea vomiting diarrhea since yesterday. Patient has been complaining of abdominal cramping, there has been no objective fevers. No sick contacts with same symptoms. The patient has not been on antibiotics, has not traveled recently, has not been hospitalized. Problem: Parkinson's and dementia History: Per patient's family I have considered the following differential diagnoses: Viral gastroenteritis, C diff, traveler's diarrhea, diverticulitis Plan: Screening labs obtained from triage, the patient is not a completely reliable historian with his underlying dementia, to err on the side of caution obtaining a CT scan. This is likely viral gastroenteritis as his abdominal exam is benign. We will be giving IV fluid and Zofran. To note he has no risk factors for C diff or traveler's diarrhea I have independently reviewed the following tests: Labs: Slight leukocytosis, not anemic, no electrolyte abnormality noted, viral panel negative CT abdomen and pelvis:IMPRESSION: 1. No acute inflammatory process identified within the abdomen or pelvis. This document has been electronically signed by: Jaquan Bush MD on 06/09/2024 22:12:30 Lab Data 06/09/24 15:51 06/09/24 15:51 Labs: Lab Results 06/09/24 Range/Units 15:51 WBC 12.9 H (4.8-10.8) X10*3/uL RBC 5.93 H (4.60-5.80) X10*6/uL Hgb 17.8 (14.0-18.0) g/dl Hct 54.3 H (42.0-52.0) % MCV 91.6 (80.0-98.0) fL MCH 30.0 (27.0-33.0) pg MCHC 32.8 (31.0-36.0) g/dl RDW 14.8 (11.0-16.0) % Plt Count 212 (160-400) X10*3/uL MPV 10.2 (9.4-12.4) fL Immature Gran % (Auto) 0.6 H (0.0-0.4) % Neut % (Auto) 76.8 H (45-73) % Lymph % (Auto) 16.8 L (20-40) % Mercer % (Auto) 4.8 (2-11) % Eos % (Auto) 0.7 (0-4) % Baso % (Auto) 0.3 (0-2) % Lymph # (Auto) 2.2 (1.2-4.9) X10*3/uL Mercer # (Auto) 0.6 (0.1-1.2) X10*3/uL Eos # (Auto) 0.1 (0.0-0.4) X10*3/uL Baso # (Auto) 0.0 (0.0-0.2) X10*3/uL Abs Immat Gran (auto) 0.08 H (0.00-0.03) X10*3/uL Absolute Neuts (auto) 9.9 H (2.0-8.3) x10*3/uL Absolute Nucleated RBC 0.000 (0.0-0.012) X10*3/uL Nucleated RBC % (auto) 0.0 (0.0-0.2) /100WBC PT 12.1 (10.9-12.4) SEC INR 1.0 (0.9-1.1) Sodium 140 (135-145) mmol/L Potassium 4.0 (3.3-5.1) mmol/L Chloride 105 (96-108) mmol/L Carbon Dioxide 24 (22-29) mmol/L Anion Gap 15 (12-20) BUN 14 (9-16) mg/dL Creatinine 0.89 (0.5-1.4) mg/dL Estim Creat Clear Calc 83.5 Estimated GFR > 60 Random Glucose 123 H (60-115) mg/dL Calcium 9.7 (8.4-10.2) mg/dL Total Bilirubin 0.7 (0.0-1.0) mg/dL AST 24 (5-37) U/L ALT < 6 (0-40) U/L Alkaline Phosphatase 112 (39-117) U/L Total Protein 8.2 H (6.5-8.0) g/dL Albumin 4.5 (3.5-5.0) g/dL Lipase 31 (8-78) U/L Influenza Type A (PCR) NEGATIVE (Negative) Influenza Type B (PCR) NEGATIVE (Negative) RSV RNA Qual (PCR) NEGATIVE (Negative) SARS-CoV-2 RNA (RT-PCR) NEGATIVE (Negative) Discharge Plan Discharge Clinical Impression: Gastroenteritis Patient Disposition: Home, Self-Care Instructions: Gastroenteritis (ED) Additional Instructions: The CT scan of the abdomen was negative, there were no lab abnormalities. You were also screened for influenza A and B, RSV and COVID, the viral panel was negative. You have viral gastroenteritis. See home care instructions. This viruse is self-limiting. Uses Zofran as needed for nausea, use the dicyclomine as needed for diarrhea and/or abdominal cramping. You can follow up with your primary care provider next week. Prescriptions: New ondansetron HCl 4 mg tablet 4 mg PO Q8H PRN (Reason: nausea and vomiting) Qty: 10 0RF dicyclomine 20 mg tablet 20 mg PO BID PRN (Reason: diarrhea) Qty: 6 0RF No Action omeprazole 40 mg capsule,delayed release(DR/EC) 40 mg PO DAILY 90 Days Qty: 90 5RF levothyroxine 100 mcg tablet 100 mcg PO DAILY 90 Days Qty: 90 5RF atorvastatin 20 mg tablet 20 mg PO DAILY 90 Days Qty: 90 5RF cholecalciferol (vitamin D3) 25 mcg (1,000 unit) capsule 25 mcg PO DAILY 90 Days Qty: 90 5RF famotidine 40 mg tablet 40 mg PO BEDTIME 90 Days Qty: 90 6RF donepezil 10 mg tablet 10 mg PO DAILY 90 Days Qty: 90 5RF aripiprazole 5 mg tablet 5 mg PO DAILY Qty: 30 5RF memantine 10 mg tablet 10 mg PO DAILY Qty: 90 5RF loratadine [Claritin] 10 mg tablet 10 mg PO DAILY acetaminophen [Tylenol Extra Strength] 500 mg tablet 500 mg PO BID PRN carbidopa-levodopa 25-100 mg tablet 1 tab PO TID sertraline 100 mg tablet 200 mg PO DAILY 90 Days Qty: 180 1RF Print Language: Belarusian
[2024-06-09 15:35] VITALS: BP 140/86; PULSE 62; RESP 18; TEMP 36.4; O2SAT 100; BMI 27.7
[2024-06-09 16:16] LABS: MANUAL DIFF FLAG NO
[2024-06-09 16:21] LABS: Basophils Percent Auto 0.3 % (0-2); Eosinophils Absolute Auto 0.1 X10*3/uL (0.0-0.4); Eosinophils Percent Auto 0.7 % (0-4); Hematocrit 54.3 % (42.0-52.0); Hemoglobin 17.8 g/dl (14.0-18.0); Imm Gran Abs Auto 0.08 X10*3/uL (0.00-0.03); Imm Gran Pct Auto 0.6 % (0.0-0.4); Lymphocytes Absolute Auto 2.2 X10*3/uL (1.2-4.9); Lymphocytes Percent Auto 16.8 % (20-40); Mean Corpuscular HGB Conc 32.8 g/dl (31.0-36.0); Mean Corpuscular Volume 91.6 fL (80.0-98.0); Mean Platelet Volume 10.2 fL (9.4-12.4); Monocytes Absolute Auto 0.6 X10*3/uL (0.1-1.2); Monocytes Percent Auto 4.8 % (2-11); Neutrophils Absolute Auto 9.9 x10*3/uL (2.0-8.3); Neutrophils Percent Auto 76.8 % (45-73); Platelet Count 212 X10*3/uL (160-400); Red Blood Count 5.93 X10*6/uL (4.60-5.80); Red Cell Distribution Width 14.8 % (11.0-16.0); White Blood Count 12.9 X10*3/uL (4.8-10.8)
[2024-06-09 16:23] LABS: Prothrombin Time 12.1 SEC (10.9-12.4)
[2024-06-09 16:34] LABS: Alanine Aminotransferase < 6 U/L (0-40); Albumin Level 4.5 g/dL (3.5-5.0); Anion Gap 15 (12-20); Aspartate Amino Transferase 24 U/L (5-37); Bilirubin Total 0.7 mg/dL (0.0-1.0); Blood Urea Nitrogen 14 mg/dL (9-16); Calcium 9.7 mg/dL (8.4-10.2); Carbon Dioxide 24 mmol/L (22-29); Chloride 105 mmol/L (96-108); Creatinine Clr Calc Pharmacy 83.5; Estimated Glomerular Filt Rate > 60; Glucose Random 123 mg/dL (60-115); Lipase 31 U/L (8-78); Sodium 140 mmol/L (135-145); Total Protein 8.2 g/dL (6.5-8.0)
[2024-06-09 16:46] LABS: Alkaline Phosphatase 112 U/L (39-117)
[2024-06-09 16:54] LABS: Influenza A PCR NEGATIVE (Negative); Influenza B PCR NEGATIVE (Negative); Resp Syncy Virus RNA Qual PCR NEGATIVE (Negative); SARS COV2 PCR INHOUSE NEGATIVE (Negative)
[2024-06-09 19:31] VITALS: BP 154/77; PULSE 55; RESP 18; TEMP 36.3; O2SAT 97
[2024-06-09] MEDS: ondansetron HCL 4 MG/2 ML VIAL IVPUSH (20:53)
[2024-06-09] MEDS: 0.9 % Sodium Chloride 1,000 ML 999 ML IV (20:53)
[2024-06-09] MEDS: iohexoL 350 MG/ML 100 ML INFUS..BTL 85 ML IV (21:15)
[2024-06-09 22:30] VITALS: BP 150/78; PULSE 61; RESP 18; TEMP 36.9; O2SAT 93
[2024-06-09 22:45] LABS: Appearance Urine Clear; Color Urine Yellow; Glucose Urine UA Negative (Negative); Leukocyte Esterase Urine Negative (Negative); Nitrite Urine Negative (Negative); PH 5.5 (5.0-9.0); Specific Gravity - Urine >= 1.030 (1.005-1.025); Urine Blood Negative (Negative); Urine Ketones Trace mg/dL (Negative); Urine Protein Negative (Neg-Trace)
[2024-06-09 22:56] VITALS: BP 150/78; PULSE 61; RESP 18; TEMP 36.9; O2SAT 93
[2024-06-09 22:56] LABS: Bacteria Urine None Seen (None Seen); Calcium Oxalate Crystals Urine Present; Hyaline Casts Urine 0-2 /LPF (0-2); RBC Urine 0-2 /HPF (0-2); Squamous Epithelial Cell Urine 0-2 /HPF (0-2); WBC Urine 0-5 /HPF (0-5)
== END 2024-06-09 22:56 | disposition home or self-care (01) ==
PROVIDERS: Physician Assistant; Emergency Provider Emergency Medicine; PCP Nurse Practitioner Family
DX: K52.9 Noninfective gastroenteritis and colitis, unspecified (principal); R11.2 Nausea with vomiting, unspecified; R51.9 Headache, unspecified; R10.9 Unspecified abdominal pain; Z03.818 Encounter for observation for suspected exposure to other biological agents ruled out; E78.5 Hyperlipidemia, unspecified; E03.9 Hypothyroidism, unspecified; G20.A1 Parkinson's disease without dyskinesia, without mention of fluctuations; F02.80 Dementia in other diseases classified elsewhere, unspecified severity, without behavioral disturbance, psychotic disturbance, mood disturbance, and anxiety; Z79.02 Long term (current) use of antithrombotics/antiplatelets; Z79.899 Other long term (current) drug therapy
CPT/HCPCS: 0241U; 74177; 80053; 81001; 83690; 85025; 85610; 93005; 96374; 99212; 99284; J2405; Q9967

== ENCOUNTER → 2024-06-09 15:34 | Outpatient (BNV) | payer MEDICARE, SELFPAY | PROVIDERS: Emergency Provider Emergency Medicine; PCP Nurse Practitioner Family; Visit Provider Internal Medicine | DX: I49.1 Atrial premature depolarization (principal); I45.10 Unspecified right bundle-branch block | CPT/HCPCS: 93010 ==

== ENCOUNTER → 2024-06-09 20:37 | Outpatient (BNV) | payer MEDICARE, SELFPAY | PROVIDERS: Emergency Provider Emergency Medicine; PCP Nurse Practitioner Family; Visit Provider Radiology Diagnostic Radiology | DX: R10.9 Unspecified abdominal pain (principal) | CPT/HCPCS: 74177 ==

== ENCOUNTER 2024-09-22 13:29 | Outpatient (REF) | payer MEDICARE, SELFPAY ==
--- NOTE | ~2024-09-22 | XR_ITS ---
EXAMINATION: XR LUMBAR SPINE 2-3 VIEWS HISTORY: M47.816 - Spondylosis without myelopathy or radiculopathy, lumbar region COMPARISON: Comparison is made with the prior examination dated 06/11/2021. FINDINGS: AP, lateral, and coned down views of the lumbar spine are submitted. Osseous mineralization is normal. Five nonrib-bearing lumbar vertebral bodies are identified, maintaining normal height and alignment without evidence of fracture or spondylolisthesis. There is diffuse moderate degenerative disc disease with disc space narrowing and osteophyte formation. Findings have progressed since the prior study. There is osteoarthritis of the lower lumbar facet joints. The visualized paraspinal soft tissues are unremarkable. XR/XR lumbar spine 2-3V IMPRESSION: Moderate degenerative disc disease with progression since the prior study. Electronically signed by: Robbie Martinez MD 09/23/2024 07:48 AM EDT
--- NOTE | ~2024-09-22 | XR_ITS ---
EXAMINATION: XR SACRUM AND COCCYX CLINICAL INFORMATION: M47.816 - Spondylosis without myelopathy or radiculopathy, lumbar region COMPARISON: None available. TECHNIQUE: 2 views of the sacrum and lateral view of the sacrum/coccyx were obtained. FINDINGS: There are no fractures. No suspicious bone lesion. The sacrum is intact. Coccyx has a normal appearance. There are moderate degenerative changes in both SI joints. There are no erosions evident. There are degenerative changes in the lower lumbar spine. There are no soft tissue abnormalities. XR/XR sacrum coccyx min 2V IMPRESSION: No acute bony abnormalities of the sacrum, coccyx, or SI joints. Electronically signed by: Alfredo Sanchez MD 09/22/2024 04:06 PM EDT
--- OUTSIDE RECORDS SUMMARY | 2024-09-22 14:04 | XMS_ITS | Clinical Summary ---
Author Organization [facility] ity Address [address] [place] [address] Care Team Providers Care Restorative Aide Name Role Phone Dino Holland MD Primary Care Provider Social History Tobacco Use Types Packs/Day Years Used Date Smoking Tobacco: Never Assessed Sex and Gender Information Value Date Recorded Sex Assigned at Not on file Legal Sex Male 3:18 AM EST Gender Identity Not on file Sexual Orientation Not on file Plan of Treatment Health Maintenance Due Date Last Done Comments DTaP,Tdap,and Td Vaccines (1 - Tdap) 1969 Pneumococcal Vaccine: 50+ Ye ars (1 of 1 - PCV) 2000 Zoster Vaccines (1 of 2) 2000 Abdominal Aortic Aneurysm (A AA) Screen 04/13/2022 Cholesterol Screening (Lipid Panel) 04/13/2022 Colorectal Cancer Screening: Colonoscopy 04/13/2022 Depression Screening 04/13/2022 Falls Risk Assessment 04/13/2022 Hepatitis C Screening 04/13/2022 Social Influencers of Health Screening 04/13/2022 COVID-19 Vaccine ( - 2023-2 5 season) 2024 Influenza Vaccine (Season Ended) 2025 RSV Immunization Adult Patie nts (1 - 1-dose 75+ series) 2025 HIB [...] patient's age to complete this topic Meningococcal B Vaccine Aged Out No l onger eligible based on patient's age to complete this topic RSV Immunization Patients Un stephanie 20 months Aged Out No longer eligible b ased on patient's age to complete this topic Varicella Vaccines Aged Out No longer eligible based on patient's age to complete this topic Advance Directives Documents on File Type Date Recorded 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
[2024-09-22 16:18] LABS: MANUAL DIFF FLAG NO
[2024-09-22 16:19] LABS: Appearance Urine Clear; Color Urine Yellow; Glucose Urine UA Negative (Negative); Leukocyte Esterase Urine Negative (Negative); Nitrite Urine Negative (Negative); PH 5.5 (5.0-9.0); Specific Gravity - Urine 1.025 (1.005-1.025); Urine Blood Negative (Negative); Urine Ketones Trace mg/dL (Negative); Urine Protein Negative (Neg-Trace)
[2024-09-22 16:26] LABS: Basophils Percent Auto 0.5 % (0-2); Eosinophils Absolute Auto 0.2 X10*3/uL (0.0-0.4); Eosinophils Percent Auto 2.2 % (0-4); Hemoglobin 16.2 g/dl (14.0-18.0); Imm Gran Abs Auto 0.03 X10*3/uL (0.00-0.03); Imm Gran Pct Auto 0.4 % (0.0-0.4); Lymphocytes Absolute Auto 1.8 X10*3/uL (1.2-4.9); Lymphocytes Percent Auto 23.7 % (20-40); Mean Corpuscular HGB Conc 32.4 g/dl (31.0-36.0); Mean Corpuscular Hemoglobin 29.6 pg (27.0-33.0); Mean Corpuscular Volume 91.2 fL (80.0-98.0); Mean Platelet Volume 10.7 fL (9.4-12.4); Monocytes Absolute Auto 0.5 X10*3/uL (0.1-1.2); Monocytes Percent Auto 6.8 % (2-11); Neutrophils Absolute Auto 5.2 x10*3/uL (2.0-8.3); Neutrophils Percent Auto 66.4 % (45-73); Platelet Count 190 X10*3/uL (160-400); Red Blood Count 5.48 X10*6/uL (4.60-5.80); Red Cell Distribution Width 15.3 % (11.0-16.0); White Blood Count 7.8 X10*3/uL (4.8-10.8)
[2024-09-22 16:51] LABS: Alanine Aminotransferase 32 U/L (0-40); Albumin Level 4.3 g/dL (3.5-5.0); Alkaline Phosphatase 130 U/L (39-117); Anion Gap 13 (12-20); Aspartate Amino Transferase 28 U/L (5-37); Bilirubin Total 0.5 mg/dL (0.0-1.0); Blood Urea Nitrogen 16 mg/dL (9-16); Calcium 9.4 mg/dL (8.4-10.2); Carbon Dioxide 27 mmol/L (22-29); Chloride 106 mmol/L (96-108); Cholesterol 171 mg/dL (<200); Estimated Glomerular Filt Rate > 60; Glucose Fasting 82 mg/dL (60-99); HDL Cholesterol 41 mg/dL (>40); LDL Cholesterol Calculated 85 mg/dL (<100); Potassium 3.9 mmol/L (3.3-5.1); Sodium 142 mmol/L (135-145); Total Protein 7.3 g/dL (6.5-8.0); Triglycerides 225 mg/dL (<150)
[2024-09-22 16:57] LABS: Prostate Specific Antigen Scr 1.45 ng/mL (<0.05-4.0); TSH reflex Free T4 6.08 uIU/mL (0.32-4.0)
[2024-09-22 17:33] LABS: Free T4 (Free Thyroxine) 0.92 ng/dL (0.71-1.85)
== END 2024-09-22 13:30 | disposition home or self-care (01) ==
LOC: HO.HMGCX 13:29
PROVIDERS: PCP Nurse Practitioner Family; Visit Provider Nurse Practitioner Family
DX: Z00.00 Encounter for general adult medical examination without abnormal findings (principal); Z23 Encounter for immunization; M47.816 Spondylosis without myelopathy or radiculopathy, lumbar region; S39.92XA Unspecified injury of lower back, initial encounter; W19.XXXA Unspecified fall, initial encounter; Y93.9 Activity, unspecified; Y92.9 Unspecified place or not applicable; Y99.9 Unspecified external cause status; Z12.5 Encounter for screening for malignant neoplasm of prostate
CPT/HCPCS: 36415; 72100; 72220; 80053; 80061; 81003; 84153; 84439; 84443; 85025; 90471; 90677; 96127; 99212

== ENCOUNTER 2024-09-22 13:44 | Outpatient (AMB) | payer MEDICARE, SELFPAY ==
[2024-09-22 13:50] VITALS: BP 130/80; PULSE 61; O2SAT 95; BMI 27.7
--- NOTE | 2024-09-22 13:51 | A.OFFVIS_ITS ---
Intake Vital Signs 09/22/24 13:50 Height 6 ft 1 in Weight 210 lb BMI 27.7 BP 130/80 Blood Pressure Location Lt brachial Position Sitting Pulse 61 Pulse Source Pulse Oximeter Pulse Oximetry (%) 95 Oxygen Delivery Method Room Air Intake Visit Reasons: SWV G0439 Allergies acetaminophen [Percocet] Adverse Reaction (Unknown, Verified 09/22/24 13:51) nausea, dry heaves oxycodone [Percocet] Adverse Reaction (Unknown, Verified 09/22/24 13:51) nausea, dry heaves Do you need a note to return to daycare/school/sports/work: No HPI SWV G0439 HPI Details AWV: CCC in scan pile, PPP in scan pile. pt is here with his HCP. Pt is now using a rolling walker, follows up with neurology. Pt's HCP is the primary caregiver, pt is checked on daily. For safety reasons, signif. fall risk, and potential danger to self (left gas stove on a couple of times), pt belongs in a [place] [facility] (care home). HCP is in agreeable with this. HCP is currently looking for facilities that will take this pt, who remains pleasant. HPI Comments History of Present Illness Details recent fall, landing on lower back, sacral region. reports increased pain to area, without radiculopathy. using rolling walker. no s/s of cauda equina PFSH Medical History Nausea and vomiting in adult Barretts esophagus Mixed Alzheimer's and vascular dementia Balance problem Vitamin D deficiency HTN (hypertension) Major depressive disorder Irregular heart rhythm Alzheimer disease Osteoarthritis of right shoulder Lumbar spondylosis Lumbar degenerative disc disease Anxiety GERD (gastroesophageal reflux disease) Hypothyroid Surgical History History of parathyroidectomy Family History Father CVD (cardiovascular disease) Mother Unknown family medical history Social History Housing: House Alcohol intake: current Alcohol intake frequency: holidays/special occasions only Patient Tobacco Use Status: Former Tobacco user Years Smoked: quit 40 years ago e-Cigarette/Vaping Use: Never Used Second Hand Smoke Exposure: No Advance Directives Date on File: 12/20/22 service: No Current occupational status: retired Cognitive needs: No Hearing needs: Yes Vision needs: Yes Questionnaire Medicare Wellness Checkup [age] What gender do you identify with?: male During the past 4 weeks, how much have you been bothered by emotional problems such as feeling anxious, depressed, irritable, sad or downhearted, and blue?: slightly During the past 4 weeks, has your physical & emotional health limited your social activities with family, friends, neighbors, or groups?: moderately During the past 4 weeks, how much bodily pain have you generally had?: moderate pain During the past 4 weeks, was someone available to help you if you needed & wanted help?: yes, quite a bit During the past 4 weeks, what was the hardest physical activity you could do for at least 2 minutes?: light Can you get to places out of walking distance without help? (For eg., can you travel alone on buses, taxis or drive your car?): No Can you go shopping for groceries or clothes without someone's help?: No Can you prepare your own meals?: No Can you do your housework without help?: No Because of any health problems, do you need the help of another person with your personal care needs such as eating, bathing, dressing or getting around the house?: No Can you handle your own money without help?: No During the past 4 weeks, how would you rate your health in general?: good During the past 4 weeks how have things been going for you?: pretty well Are you having difficulties driving your car?: not applicable, I don't use a car Do you always fasten your seat belt when you are in a car?: no During past 4 weeks, have you been bothered by the following: never: Sexual problems?, Trouble eating well?, Teeth or denture problems? and Problems using the telephone? and sometimes: Falling or dizzy when standing up and Tiredness or fatigue? Have you fallen 2 or more times in the past year?: Yes Are you afraid of falling?: Yes Are you a smoker?: no During the past 4 weeks, how many drinks of wine, beer, or other alcoholic beverages did you have?: no alcohol at all Do you exercise for about 20 minutes 3 or more times a week?: no, I usually do not exercise this much Have you been given information to help with the following?: no: Hazards in your house that might hurt you? and no: Keeping track of your medications? How often do you have trouble taking medicines the way you have been told to take them?: sometimes I take medicine as prescribed How confident are you that you can control & manage most of your health problems?: not very confident What is your race?: White Mini Mental State Exam (MMSE) Orientation What is the (year) (season) (date) (day) (month)?: year Where are we (state) (county) (town or city) (hospital) (floor)?: state Registration Name of 3 unrelated objects clearly and slowly, then ask patient to repeat all 3 of them. (1st repeat determines score. Make sure they can repeat all three): object 1, object 2 and object 3 Attention & Calculation (CHOOSE ONE) Spell WORLD backwards (DLROW): 0 letters Recall Ask patient to repeat the 3 items from question #3.: object 1 Language Show patient a wristwatch & ask what it is. Repeat for pencil.: watch Ask the patient to repeat the phrase 'No ifs, ands, or buts' after you.: correct Ask the patient to 'take a piece of paper with their right hand' 'fold paper in half' 'place paper on floor': take paper in right hand, fold paper in half and place paper on floor Print the sentence 'CLOSE YOUR EYES' on a piece. If patient actually closes eyes then score.: followed written direction Give patient a blank piece of paper & ask to write a sentence. Score if it contains a noun & verb.: sentence contains subject and verb Score Score: 13 Activity of Daily Living Bathing - sponge bath, tub bath or shower: receives help in bathing only one body part (such as back or leg) Dressing - getting clothes from closets & drawers, including inner/outer garments & fasteners.: gets clothes & gets completely dressed without help Toileting - going to the 'toilet room' for urine/bowel elimination & cleaning self/arranging clothes: goes to toilet room, cleans self, arranges clothes without help Transfer: moves in & out of bed and chair without help (may use support object) Continence: has occasional 'accidents' Feeding: feeds self without help Total Score: 0 Information obtained from: informant (HCP in room today, helping with info) Using telephone: independent Traveling: dependent Shopping: dependent Preparing meals: dependent Housework: dependent Taking medicine: dependent Managing money: dependent PHQ-9 Over the last 2 weeks, how often have you been bothered by any of the following problems? 1. Little interest or pleasure in doing things: several days 2. Feeling down, depressed, or hopeless: several days 3. Trouble falling or staying asleep, or sleeping too much: several days 4. Feeling tired or having little energy: several days 5. Poor appetite or overeating: not at all 6. Feeling bad about yourself - or that you are a failure or have let yourself or your family down: several days 7. Trouble concentrating on things, such as reading the newspaper or watching television: more than half the days 8. Moving or speaking so slowly that other people could have noticed. Or the opposite - being so fidgety or restless that you have been moving around a lot more than usual: more than half the days 9. Thoughts that you would be better off or of hurting yourself in some way: not at all Total score: 9 Depression Screening Interpretation: Positive (denies any si or hi) Depression Screening Follow-up: Existing condition Depression Screening Done: Yes 36122 - PHQ-9 Billing: Yes Source: Developed by Drs. Robbie Anderson, Elizabeth Hilario, Cristofer Sánchez and colleagues, with an educational mansoor from [employer]. Physical Exam Vital Signs: Last Vital Signs Pulse 61 09/22/24 13:50 BP 130/80 09/22/24 13:50 Pulse Ox 95 09/22/24 13:50 Oxygen Delivery Method Room Air 09/22/24 13:50 BMI result Body Mass Index 27.7 Back/Spine/Pelvis Other: tenderness with palpation of lower back/upper sacral region. no active ecchymosis or erythema. neg straight leg raises. uses rolling walker to stand Neuro Other: cannot stand without walker assistance (from sitting position). Tremors noted (parkinsons), passed whisper test, cannot tandem walk Immunizations pneumoc 20-steven conj-dip cr(PF) 0.5 mL IM syringe Performing Provider: [facility] Performing Location: [facility] Administered by: Dru Jay CMA on 09/22/24 14:35 Dose Route Admin Location Dispensed Lot Number Expiration Date [facility] Manager Leadership Development 0.5 mL IM Right Deltoid 0.5 mL [id number] 07/28/25 [employer] VIS Given Date VIS Provided VIS Publication Date 09/22/24 Single Vaccine 21 Eligibility Eligibility Date Funding Source Not [facility] Eligible 09/22/24 Private Assessment & Plan Assessment & Plan (1) Screening for colon cancer: Code(s): Z12.11 - Encounter for screening for malignant neoplasm of colon (2) Lumbar spondylosis: Code(s): M47.816 - Spondylosis without myelopathy or radiculopathy, lumbar region (3) Fall: Code(s): W19.XXXA - Unspecified fall, initial encounter (4) Tailbone injury: Code(s): S39.92XA - Unspecified injury of lower back, initial encounter Plan: . (5) Medicare annual wellness visit, subsequent: Code(s): Z00.00 - Encounter for general adult medical examination without abnormal fi ndings Plan . Orders: Orders XR lumbar spine 2-3V Today M47.816 - Spondylosis without myelopathy or radiculopathy, lumbar region, S39.92XA - Unspecified injury of lower back, initial encounter, W19.XXXA - Unspecified fall, initial encounter XR sacrum coccyx min 2V Today M47.816 - Spondylosis without myelopathy or radiculopathy, lumbar region, S39.92XA - Unspecified injury of lower back, initial encounter, W19.XXXA - Unspecified fall, initial encounter Pneumococcal 20 Immunization Today Z23 - Encounter for immunization Referrals Gastroenterology Referral Z12.11 - Encounter for screening for malignant neoplasm of colon Quality Reporting (2019) Depression/Bipolar (159/160/161/177) PHQ-9: Total score: 9 Coding Level of Care Code Medicare Subsequent (G0439) Est Pt Level 3 (36417) Diagnoses Screening for colon cancer Z12.11 Lumbar spondylosis M47.816 Fall W19.XXXA Tailbone injury S39.92XA Medicare annual wellness visit, subsequent Z00.00 CPT Codes Advance Care Planning - Time spent: 1-15 minutes, on File ([id number]) Additional Codes PHQ-9 - 46073 - PHQ-9 Billing: Yes ([id number]) Advance Care Planning Forms completed: Health Care Proxy (done), MOLST (done) and Living will (not done) Time spent: 1-15 minutes, on File Actual minutes spent: 5
== END 2024-09-22 14:38 | disposition home or self-care (01) ==
LOC: HO.HMCC 13:45
PROVIDERS: PCP Nurse Practitioner Family; Visit Provider Nurse Practitioner Family
DX: Z00.00 Encounter for general adult medical examination without abnormal findings (principal); S39.92XA Unspecified injury of lower back, initial encounter; Z12.11 Encounter for screening for malignant neoplasm of colon; M47.816 Spondylosis without myelopathy or radiculopathy, lumbar region; W19.XXXA Unspecified fall, initial encounter; Z23 Encounter for immunization

== ENCOUNTER → 2024-09-22 14:43 | Outpatient (BNV) | payer MEDICARE, SELFPAY | PROVIDERS: PCP Nurse Practitioner Family; Visit Provider Radiology Diagnostic Radiology | DX: M47.816 Spondylosis without myelopathy or radiculopathy, lumbar region (principal) | CPT/HCPCS: 72220 ==

== ENCOUNTER 2025-01-26 15:27 | Outpatient (REF) | payer MEDICARE, SELFPAY ==
--- NOTE | ~2025-01-26 | XR_ITS ---
EXAMINATION: XR CHEST CLINICAL INFORMATION: R05.9 - Cough, unspecified COMPARISON: 02/23/2017 TECHNIQUE: 2 views of the chest were obtained. FINDINGS: No significant abnormality is noted involving the heart, lungs, mediastinum, or soft tissues. Flowing osteophytes are present throughout the thoracic spine XR/XR chest 2V IMPRESSION: No acute disease. Degenerative changes in the thoracic spine consistent with diffuse idiopathic skeletal hyperostosis (DISH). Electronically signed by: Eloy Oseguera MD 01/26/2025 04:44 PM EDT RP
== END 2025-01-26 15:28 | disposition home or self-care (01) ==
LOC: HO.HMGCX 15:27
PROVIDERS: PCP Nurse Practitioner Family; Visit Provider Physician Assistant Medical
DX: R07.81 Pleurodynia (principal); R05.9 Cough, unspecified
CPT/HCPCS: 71046; 99212

== ENCOUNTER → 2025-01-26 15:27 | Outpatient (AMB) | payer MEDICARE, SELFPAY ==
[2025-01-26 15:34] VITALS: BP 102/60; PULSE 65; TEMP 36.3; O2SAT 97; BMI 27.4
--- NOTE | 2025-01-26 15:34 | AM.OFFWIN_ITS ---
Intake Vital Signs 01/26/25 15:34 Height 6 ft 1 in Weight 208 lb BMI 27.4 BP 102/60 Blood Pressure Location Lt brachial Position Sitting Pulse 65 Pulse Source Pulse Oximeter Temp 97.4 F Temp Source Oral Pulse Oximetry (%) 97 Oxygen Delivery Method Room Air Intake Visit Reasons: EP right side pain/ fall Intake Note: pt reports with right rib pain after falling a week ago- he did fall a few times that week Patient Tobacco Use Status: Former Tobacco user Allergies acetaminophen (Percocet) Adverse Reaction (Unknown, Verified 09/22/24 13:51) nausea, dry heaves oxycodone (Percocet) Adverse Reaction (Unknown, Verified 09/22/24 13:51) nausea, dry heaves Do you need a note to return to daycare/school/sports/work: No HPI HPI Comments History of Present Illness Details History of Present Illness - The patient is a 74-year-old male pres enting with his daughter Toshia for rib pain following multiple falls. - The patient has a history of dementia and Parkinson's disease, which have been progressively worsening. - He has experienced at least three or f our falls in the past two weeks, with varying accounts of the falls occurring on different surfaces such as grass and gravel. - The most recent fall occurred on , resulting in pain in the right rib area, although no visible bruising was noted. - The patient reports pain upon deep aubrey athing, sneezing, and when moving his arms, indicating possible internal injury. - There is no report of shortness of aubrey ath, but exertion seems to cause discomfort. - The patient has not hit his head or ne ck during the falls, and there are no complaints of pain in the legs, knees, or back. Physical Exam General: Cooperative, healthy appearing, comfortable, no acute distress and well developed Orientation: Patient oriented x3 Limitations: No limitations, ambulates with a walker Head: Normal to inspection Neck: Normal visual inspection, full ROM Respiratory: Normal respiratory effort and able to speak in complete sentences. cardiac: Regular rate and rhythm, no m/r/g noted. TTP of the right anterior and lateral chest wall. No crepitus noted. Skin: No rashes or lesions noted. No contusions or abrasions noted. Neuro: Patient oriented x3, CN 2-12 intact, gait normal Back/spine: No TTP cervical, thoracic or lumbar spine. No step offs noted. Extremities: FROM of the UE and LE bilaterally. Strength is 5/5 on the UE and LE. Patient was informed and verbally consented to the use of an ambient scribe for clinic note documentation during this visit. [facility] Medical History Nausea and vomiting in adult Barretts esophagus Mixed Alzheimer's and vascular dementia Balance problem Vitamin D deficiency HTN (hypertension) Major depressive disorder Irregular heart rhythm Alzheimer disease Osteoarthritis of right shoulder Lumbar spondylosis Lumbar degenerative disc disease Anxiety GERD (gastroesophageal reflux disease) Hypothyroid Surgical History History of parathyroidectomy Family History Father CVD (cardiovascular disease) Mother Unknown family medical history Social History Housing: House Alcohol intake: current Alcohol intake frequency: holidays/special occasions only Patient Tobacco Use Status: Former Tobacco user Years Smoked: quit 40 years ago e-Cigarette/Vaping Use: Never Used Second Hand Smoke Exposure: No Advance Directives Date on File: 12/20/22 service: No Current occupational status: retired Cognitive needs: No Hearing needs: Yes Vision needs: Yes Review of Systems Const All systems reviewed & are unremarkable except as noted in HPI and below Physical Exam Vital Signs: Last Vital Signs Temp 97.4 F 01/26/25 15:34 Pulse 65 01/26/25 15:34 BP 102/60 01/26/25 15:34 Pulse Ox 97 01/26/25 15:34 Oxygen Delivery Method Room Air 01/26/25 15:34 BMI result Body Mass Index 27.4 Results Reviewed Results Reviewed: reviewed the xray in the office Assessment & Plan Assessment & Plan (1) Fall: Code(s): W19.XXXA - Unspecified fall, initial encounter Qualifiers: Encounter type: initial encounter Qualified Code(s): W19.XXXA - Unspecified fall, initial encounter (2) Rib pain on right side: Code(s): R07.81 - Pleurodynia Plan Most likely contusion vs fall Plan - An x-ray of the ribs is recommended to assess for possible fractures. - will call with the results - Consideration for mcc placement due to safety concerns and frequent falls. - Continue monitoring for any signs of respiratory distress or worsening pain. - Encourage deep breathing once an hour - follow up with PCP Orders: Orders XR chest 2V Today R05.9 - Cough, unspecified Coding Level of Care Code Est Pt Level 4 (14208) Diagnoses Fall, initial encounter W19.XXXA Encounter type: initial encounter Rib pain on right side R07.81
--- OUTSIDE RECORDS SUMMARY | 2025-01-26 16:50 | XMS_ITS | Clinical Summary ---
Author Organization [facility] ity Address [address] [place] [address] Care Team Providers Care Supervisor [address] Name Role Phone Dino Holland MD Primary [...] Panel) 04/13/2022 Colorectal Cancer Screening: Colonoscopy 04/13/2022 Falls Risk Assessment 04/13/2022 Hepatitis C Screening 04/13/2022 Social Influencers of Health Screening 04/13/2022 Depression Screening 05/11/2024 COVID-19 Vaccine ( - 2023-2 5 season) 2025 Influenza Vaccine (#1) 2025 RSV Immunization Adult Patie nts (1 [...] Documents on File Type Date Recorded Patient Fisher Scallop Expl anation Health Care Decision (hx) 01/29/2024 HE ALTH CARE PROXY Care Teams Supervisor [address] Relationship Specialty Start Date End Date Dino Holland MD [address] [place] [address] Dr [address] ANASTASIA Vicente PCP - General Internal Medicine 11/12/16
== END ==
PROVIDERS: PCP Nurse Practitioner Family; Visit Provider Physician Assistant Medical
DX: R07.81 Pleurodynia (principal); W19.XXXA Unspecified fall, initial encounter

== ENCOUNTER → 2025-01-26 16:08 | Outpatient (BNV) | payer MEDICARE, SELFPAY | PROVIDERS: PCP Nurse Practitioner Family; Visit Provider Radiology Diagnostic Radiology | DX: R05.9 Cough, unspecified (principal) | CPT/HCPCS: 71046 ==

== ENCOUNTER 2025-02-09 13:34 | Outpatient (AMB) | payer MEDICARE, SELFPAY ==
--- NOTE | 2025-02-09 13:56 | A.OFFVIS_ITS ---
Intake Visit Reasons: 6 Months Allergies acetaminophen (Percocet) Adverse Reaction (Unknown, Verified 09/22/24 13:51) nausea, dry heaves oxycodone (Percocet) Adverse Reaction (Unknown, Verified 09/22/24 13:51) nausea, dry heaves HPI Comments Details: 74 y/o man with migraine, anxiety, and dementia with behavioral symptoms. Mainly he was aggressive and agitated type with periods of depression. He was doing ok . Sleep was ok. Mood was ok. No new behavioral issues. No falls. Memory was getting worse. He is presenting with falls and rib contusion. Over the last month, he has experienced multiple falls, resulting in bruising of the right ribs. These falls relate primarily to his gait instability and severe tremor. His last brain imaging was performed three years prior, with no evidence of a pacemaker. The patient's living situation is concerning, as he currently resides alone, although family assistance is ongoing in securing placements in care. Pharmacy services ensure prescription continuity, with his medication regimen deemed appropriate as of 2024. [facility] Medical History (Updated 02/09/25 @ 13:57 by Acacia Aldridge MD) Nausea and vomiting in adult Barretts esophagus Mixed Alzheimer's and vascular dementia Balance problem Vitamin D deficiency HTN (hypertension) Major depressive disorder Irregular heart rhythm Alzheimer disease Osteoarthritis of right shoulder Lumbar spondylosis Lumbar degenerative disc disease Anxiety GERD (gastroesophageal reflux disease) Hypothyroid Surgical History History of parathyroidectomy Family History Father CVD (cardiovascular disease) Mother Unknown family medical history Social History Housing: House Alcohol intake: current Alcohol intake frequency: holidays/special occasions only Patient Tobacco Use Status: Former Tobacco user Years Smoked: quit 40 years ago e-Cigarette/Vaping Use: Never Used Second Hand Smoke Exposure: No Advance Directives Date on File: 12/20/22 service: No Current occupational status: retired Cognitive needs: No Hearing needs: Yes Vision needs: Yes Review of Systems Const Details: - Neurological: Reports tremor, gait disturbance - General: Reports falls - Musculoskeletal: Reports rib contusion Physical Exam Neuro Other: Mental Status: He is alert and awake but not oriented to the correct year, month or season. Was answering simple questions. Affect was okay. Cranial Nerves: CN II: Visual bourgeois full to confrontation, visual acuity intact. CN III, IV, : Pupils equal, round, reactive to light and accommodation. Extraocular movements are normal. CN V: Facial sensation is normal. CN VII: Facial movements symmetrical. CN VIII: Hearing intact to bedside conversation is normal. CN IX, X: Palate elevates symmetrically. CN XI: Shoulder shrug and head turn symmetrical. CN XII: Tongue midline without atrophy or fasciculations. Short step slow paced gait with a walker with magnetic pattern. Extrapyramidal: Moderate cogwheeling rigidity in upper extremities Speech: Normal; no dysarthria or tremor. Assessment & Plan Assessment & Plan (1) Alzheimer disease: Comment: CT brain WO at [facility] in October 2021: Mod severe diff cerebral and cerebellar atrophy. Code(s): G30.9 - Alzheimer's disease, unspecified; F02.80 - Dementia in other diseases classified elsewhere, unspecified severity, without behavioral disturbance, psychotic disturbance, mood disturbance, and anxiety Category: Medical (2) Parkinsonism: Code(s): G20.C - Parkinsonism, unspecified Category: Medical Qualifiers: Parkinsonism type: unspecified Qualified Code(s): G20.C - Parkinsonism, unspecified Plan Impression: a: Moderate to severe dementia b: Parkinsonism c: Significant worsening of gait leading to falls that might be combination of factors Rec: a: MRI of brain to r/o NPH type picture b: Donepezil 10mg a day c: Memantine 10mg bid d: Sertraline 200mg a day in am e: Carbidopa/levodopa 25/100, one tid Orders: Orders MR head/brain wo con Today F02.80 - Dementia in other diseases classified elsewhere, unspecified severity, without behavioral disturbance, psychotic disturbance, mood disturbance, and anxiety, G30.9 - Alzheimer's disease, unspecified Medications: New carbidopa-levodopa 25-100 mg 1 tab PO TID 270 tabs 1RF Changed From memantine 10 mg PO DAILY 90 tabs 5RF To memantine 10 mg PO BID 180 tabs 1RF Refilled donepezil 10 mg PO DAILY 90 tabs 1RF 90 days sertraline 200 mg (2 x 100 mg) PO DAILY 180 tabs 1RF Coding Level of Care Code Est Pt Level 4 (77444) Diagnoses Alzheimer disease G30.9; F02.80 Parkinsonism, unspecified Parkinsonism type G20.C Parkinsonism type: unspecified
--- OUTSIDE RECORDS SUMMARY | 2025-02-09 15:04 | XMS_ITS | Patient Health Record ---
Author Organization [facility] Address [address] [place] [address] Care Team Providers Care Pavilion Cutter Name Role Phone Robbie Reeves [phone] Reason For Referral No Information Plan Of Treatment No Information
--- OUTSIDE RECORDS SUMMARY | 2025-02-09 15:04 | XMS_ITS | Clinical Summary ---
Author Organization [employer] [facility] ity Address [address] [place] [address] Care Team Providers Care Barber Shop Operator Name Role Phone Dino Holland MD Primary Care Provider Social History Tobacco Use Types Packs/Day Years Used Date Smoking Tobacco: Never Assessed Sex and Gender Information Value Date Recorded Sex Assigned at Not on file Legal Sex Male 3:18 AM EST Gender Identity Not on file Sexual Orientation Not on file Plan of Treatment Health Maintenance Due Date Last Done Comments Colorectal Cancer Screening: Colonoscopy 1950 DTaP,Tdap,and Td Vaccines (1 - Tdap) 1969 Pneumococcal Vaccine: 50+ Ye ars (1 of 1 - PCV) 2000 Zoster Vaccines (1 of 2) 2000 Abdominal Aortic Aneurysm (A AA) Screen 04/13/2022 Cholesterol Screening (Lipid Panel) 04/13/2022 Falls Risk Assessment 04/13/2022 Hepatitis C [...] on File Type Date Recorded 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
== END 2025-02-09 14:06 | disposition home or self-care (01) ==
LOC: HO.HSM 13:35
PROVIDERS: PCP Nurse Practitioner Family; Referring Provider Nurse Practitioner Family; Visit Provider Psychiatry & Neurology Neurology
DX: G30.9 Alzheimer's disease, unspecified (principal); F02.80 Dementia in other diseases classified elsewhere, unspecified severity, without behavioral disturbance, psychotic disturbance, mood disturbance, and anxiety; G20.C Parkinsonism, unspecified
CPT/HCPCS: 99214

== ENCOUNTER → 2025-02-09 13:34 | Outpatient (BNVA) | payer MEDICARE, SELFPAY | PROVIDERS: PCP Nurse Practitioner Family; Referring Provider Nurse Practitioner Family; Visit Provider Psychiatry & Neurology Neurology | DX: G30.9 Alzheimer's disease, unspecified (principal); F02.80 Dementia in other diseases classified elsewhere, unspecified severity, without behavioral disturbance, psychotic disturbance, mood disturbance, and anxiety; G20.C Parkinsonism, unspecified | CPT/HCPCS: 99212 ==

== ENCOUNTER 2025-02-27 18:11 | Outpatient (REF) | payer MEDICARE, SELFPAY ==
--- NOTE | ~2025-02-27 | MR_ITS ---
EXAMINATION: MR BRAIN WITHOUT CONTRAST CLINICAL INFORMATION: G30 0.9. Alzheimer's disease. COMPARISON: None available. TECHNIQUE: MRI of the brain was obtained using routine sequences without contrast. FINDINGS: No restricted diffusion. No acute intracranial hemorrhage, mass effect, midline shift, hydrocephalus or herniation. Lopez-white matter differentiation is normal. Prominence of the extra-axial CSF spaces, cerebral sulci, ventricles. Posterior cranial fossa contents demonstrated Sonny cisterna magna. Flow-void signal within the main cerebral vessels is normal. Sellar/suprasellar region demonstrated no signal abnormality or masses. Craniocervical junction demonstrates normal position of the cerebellar tonsils. MR/MR head/brain wo con IMPRESSION: No acute stroke/nonhemorrhagic ischemia. No acute intracranial hemorrhage. Global cerebral atrophy. Normal pressure hydrocephalus cannot be entirely excluded. Electronically signed by: Rakesh White MD 02/28/2025 07:04 AM EDT
--- OUTSIDE RECORDS SUMMARY | 2025-02-27 20:56 | XMS_ITS | Patient Health Record ---
Author Organization [facility] Address [address] [place] [address] Care Team Providers Care Liquid Loader Name Role Phone Robbie Reeves [phone] Reason For Referral No Information Plan Of Treatment No Information
== END 2025-02-27 18:12 | disposition home or self-care (01) ==
LOC: HO.MRI 18:11
PROVIDERS: PCP Nurse Practitioner Family; Visit Provider Psychiatry & Neurology Neurology
DX: G30.9 Alzheimer's disease, unspecified (principal); F02.80 Dementia in other diseases classified elsewhere, unspecified severity, without behavioral disturbance, psychotic disturbance, mood disturbance, and anxiety
CPT/HCPCS: 70551

== ENCOUNTER → 2025-02-27 18:11 | Outpatient (BNV) | payer MEDICARE, SELFPAY | PROVIDERS: PCP Nurse Practitioner Family; Visit Provider Radiology Diagnostic Radiology | DX: G31.9 Degenerative disease of nervous system, unspecified (principal) | CPT/HCPCS: 70551 ==

== ENCOUNTER 2025-03-06 15:57 | Outpatient (AMB) | payer MEDICARE, SELFPAY ==
--- NOTE | 2025-03-06 16:11 | MHC.OFFVIS ---
Intake Visit Reasons: results of mrii Allergies acetaminophen (Percocet) Adverse Reaction (Unknown, Verified 09/22/24 13:51) nausea, dry heaves oxycodone (Percocet) Adverse Reaction (Unknown, Verified 09/22/24 13:51) nausea, dry heaves HPI Comments Details: 74 y/o man with cognitive difficulties, parkinsonism, in significant gait disorder with significant hyperreflexia of knees. He was back after his brain MRI and stated that there was no new problem. He was still walking very slowly. [facility] Medical History (Updated 03/06/25 @ 16:19 by Acacia Aldridge MD) Nausea and vomiting in adult Barretts esophagus Mixed Alzheimer's and vascular dementia Balance problem Vitamin D deficiency HTN (hypertension) Major depressive disorder Irregular heart rhythm Alzheimer disease Osteoarthritis of right shoulder Lumbar spondylosis Lumbar degenerative disc disease Anxiety GERD (gastroesophageal reflux disease) Hypothyroid Surgical History History of parathyroidectomy Family History Father CVD (cardiovascular disease) Mother Unknown family medical history Social History Housing: House Alcohol intake: current Alcohol intake frequency: holidays/special occasions only Patient Tobacco Use Status: Former Tobacco user Years Smoked: quit 40 years ago e-Cigarette/Vaping Use: Never Used Second Hand Smoke Exposure: No Advance Directives Date on File: 12/20/22 service: No Current occupational status: retired Cognitive needs: No Hearing needs: Yes Vision needs: Yes Physical Exam Neuro Other: Mental Status: He is alert and awake with normal spontaneity of speech fluency comprehension and anxious affect. Cranial Nerves: CN II: Visual bourgeois full to confrontation, visual acuity intact. CN III, IV, : Pupils equal, round, reactive to light and accommodation. Extraocular movements are normal. CN V: Facial sensation is normal. CN VII: Facial movements symmetrical. CN VIII: Hearing intact to bedside conversation is normal. CN IX, X: Palate elevates symmetrically. CN XI: Shoulder shrug and head turn symmetrical. CN XII: Tongue midline without atrophy or fasciculations. Deep tendon reflexes are brisk in knees. Logan sign is absent. He is walking very slowly with a walker. Extrapyramidal: Facial expression blinking or diminished. Speech: Normal; no dysarthria or tremor. Assessment & Plan Assessment & Plan (1) Alzheimer disease: Comment: [place] [facility] [place]: Mod diff atrophy, central and cortical, mild MVD CT brain WO at [facility] in October 2021: Mod severe diff cerebral and cerebellar atrophy. Code(s): G30.9 - Alzheimer's disease, unspecified; F02.80 - Dementia in other diseases classified elsewhere, unspecified severity, without behavioral disturbance, psychotic disturbance, mood disturbance, and anxiety Category: Medical (2) Gait disorder: Code(s): R26.9 - Unspecified abnormalities of gait and mobility Category: Medical Plan Impression: a: Moderate to severe dementia b: Parkinsonism c: Multifactorial gait disorder with significant hyperreflexia in legs suggestive of an upper motor lesion with MRI of brain not revealing significant white matter disease. Rec: a: Donepezil 10mg a day b: Memantine 10mg bid c: Sertraline 200mg a day in am d: Carbidopa/levodopa 25/100, one tid e: MRI C spine to r/o cord compression Orders: Orders MR cervical spine wo con Today R26.9 - Unspecified abnormalities of gait and mobility Coding Level of Care Code Est Pt Level 4 (98273) Diagnoses Alzheimer disease G30.9; F02.80 Gait disorder R26.9
--- OUTSIDE RECORDS SUMMARY | 2025-03-06 18:58 | XMS_ITS | Patient Health Record ---
Author Organization [facility] Address [address] [place] [address] Care Team Providers Care Coverer Name Role Phone Robbie Reeves [phone] Reason For Referral No Information Plan Of Treatment No Information
--- OUTSIDE RECORDS SUMMARY | 2025-03-06 18:58 | XMS_ITS | Clinical Summary ---
Author Organization [employer] [facility] ity Address [address] [place] [address] Care Team Providers Care Solderer Production Line Name Role Phone Dino Holland MD Primary Care Provider [phone] Social History Tobacco Use Types Packs/Day Years [...] Documents on File Type Date Recorded Patient Snipper Expl anation Health Care Decision (hx) 01/29/2024 HE ALTH CARE PROXY Care Teams Solderer Production Line Relationship Specialty Start Date End Date Dino Holland MD [address] [place] [address] Dr [address] ANASTASIA Vicente PCP - General Internal Medicine 11/12/16
== END 2025-03-06 16:25 | disposition home or self-care (01) ==
LOC: HO.HSM 15:58
PROVIDERS: PCP Nurse Practitioner Family; Visit Provider Psychiatry & Neurology Neurology
DX: G30.9 Alzheimer's disease, unspecified (principal); F02.80 Dementia in other diseases classified elsewhere, unspecified severity, without behavioral disturbance, psychotic disturbance, mood disturbance, and anxiety; R26.9 Unspecified abnormalities of gait and mobility
CPT/HCPCS: 99214

== ENCOUNTER → 2025-03-06 15:57 | Outpatient (BNVA) | payer MEDICARE, SELFPAY | PROVIDERS: PCP Nurse Practitioner Family; Visit Provider Psychiatry & Neurology Neurology | DX: G30.9 Alzheimer's disease, unspecified (principal); R29.2 Abnormal reflex; F02.80 Dementia in other diseases classified elsewhere, unspecified severity, without behavioral disturbance, psychotic disturbance, mood disturbance, and anxiety; R26.9 Unspecified abnormalities of gait and mobility; Z87.891 Personal history of nicotine dependence | CPT/HCPCS: 99212 ==

== ENCOUNTER 2025-04-09 14:13 | Outpatient (REF) | payer MEDICARE, SELFPAY ==
--- NOTE | ~2025-04-09 | MR_ITS ---
EXAMINATION: MR CERVICAL SPINE WITHOUT CONTRAST CLINICAL INFORMATION: R 26.9. COMPARISON: None available. TECHNIQUE: MRI of the cervical spine was obtained using routine sequences without contrast. FINDINGS: Craniocervical junction is intact. Normal position of the cerebellar tonsils. Prominent extra-axial CSF spaces in the posterior cranial fossa with prominent cisterna magna. There is bone marrow STIR signal abnormality involving the vertebral bodies from C4 to C7 pronounced C6 and to a lesser extent C5 vertebral bodies with an anterior prevertebral compartment hyperintense T2 STIR signal extending from C4 C7 in the craniocaudal dimension, causing mass effect upon the posterior larynx. Multilevel marginal osteophyte formation decreased intervertebral disc height and signal at C3 T1 levels. The cervical spinal cord signal is normal. Grade 1 retrolisthesis C3-4. Reverse curvature/kyphotic deformity apex at C6. C2-3: Broad-based disc osteophyte compresses formation. No cord compression. No neuroforamina stenosis. C3-4: Broad-based disc osteophyte consummation resulting in ventral deformity of the thecal sac. No cord compression. Left neuroforamina narrowing on a degenerative basis. C4-5: Broad-based disc osteophyte complex formation abutting the spinal cord. Bilateral neuroforamina stenosis. C5-6: Broad-based disc osteophyte compresses formation resulting in ventral deformity of the thecal sac. Bilateral neuroforamina narrowing. C6-7: Broad-based disc osteophyte complex formation resulting in ventral deformity of the thecal sac. No cord compression. Bilateral neuroforamina narrowing, left greater than the right side. C7-T1: Broad-based disc osteophyte compresses formation resulting in ventral deformity of the thecal sac. Bilateral neuroforamina narrowing, left greater than the right side. Flow-void signal within the main vessels is normal. Codominant vertebral arteries.. MR/MR cervical spine wo con IMPRESSION: Multilevel cervical spondylosis pronounced from C4 to T1 with an anterior prevertebral compartment soft tissue component. Superimposed tumor infiltration cannot be excluded. Recommend cervical spine x-ray and IV contrast enhanced MRI cervical spine. Central spinal canal stenosis at C4-5 and to a lesser extent C6-7 and bilateral neuroforamina stenosis, left greater than right from C3-4 to C7-T1 pronounced at C4-5. Electronically signed by: Rakesh White MD 04/10/2025 08:03 AM EST
--- OUTSIDE RECORDS SUMMARY | 2025-04-09 14:19 | XMS_ITS | Patient Health Record ---
Author Organization [facility] Address [address] [place] [address] Care Team Providers Care Furnace Roaster Name Role Phone Robbie Reeves [phone] Reason For Referral No Information Plan Of Treatment No Information
--- OUTSIDE RECORDS SUMMARY | 2025-04-09 14:19 | XMS_ITS | Clinical Summary ---
Author Organization [employer] [facility] ity Address [address] [place] [address] Care Team Providers Care Patient Safety Sitter Name Role Phone Dino Holland MD Primary [...] Depression Screening 05/11/2024 COVID-19 Vaccine ( - 2024-2 6 season) 2025 Influenza Vaccine (#1) 2025 RSV [...] Documents on File Type Date Recorded Patient Control Operator Flow Coat Expl anation Health Care Decision (hx) 01/29/2024 HE ALTH CARE PROXY Care Teams Patient Safety Sitter Relationship Specialty Start Date End Date Dino Holland MD [address] [place] [address] [address] ANASTASIA Vicente PCP - General Internal Medicine 11/12/16
== END 2025-04-09 14:14 | disposition home or self-care (01) ==
LOC: HO.MRI 14:13
PROVIDERS: PCP Nurse Practitioner Family; Visit Provider Psychiatry & Neurology Neurology
DX: R26.9 Unspecified abnormalities of gait and mobility (principal)
CPT/HCPCS: 72141

== ENCOUNTER → 2025-04-09 14:18 | Outpatient (BNV) | payer MEDICARE, SELFPAY | PROVIDERS: PCP Nurse Practitioner Family; Visit Provider Radiology Diagnostic Radiology | DX: M47.812 Spondylosis without myelopathy or radiculopathy, cervical region (principal); M99.61 Osseous and subluxation stenosis of intervertebral foramina of cervical region | CPT/HCPCS: 72141 ==

== ENCOUNTER 2025-04-20 08:12 | Outpatient (AMB) | payer MEDICARE, SELFPAY ==
--- NOTE | 2025-04-20 08:28 | A.OFFVIS_ITS ---
Intake Visit Reasons: after MRI Allergies acetaminophen (Percocet) Adverse Reaction (Unknown, Verified 09/22/24 13:51) nausea, dry heaves oxycodone (Percocet) Adverse Reaction (Unknown, Verified 09/22/24 13:51) nausea, dry heaves HPI Comments Details: 74 y/o man with cognitive difficulties, parkinsonism, in significant gait disorder with significant hyperreflexia of knees. He is presenting to review MRI results for difficulty walking. A prior examinat ion revealed difficulty walking and abnormal reflexes, which prompted a cervical spine MRI. The patient has no personal history of cancer and is a non-smoker. His family history is notable for a sister who had breast cancer with subsequent lung metastasis. [facility] Medical History (Updated 04/20/25 @ 08:38 by Acacia Aldridge MD) Nausea and vomiting in adult Barretts esophagus Mixed Alzheimer's and vascular dementia Balance problem Vitamin D deficiency HTN (hypertension) Major depressive disorder Irregular heart rhythm Alzheimer disease Osteoarthritis of right shoulder Lumbar spondylosis Lumbar degenerative disc disease Anxiety GERD (gastroesophageal reflux disease) Hypothyroid Surgical History History of parathyroidectomy Family History Father CVD (cardiovascular disease) Mother Unknown family medical history Social History Housing: House Alcohol intake: current Alcohol intake frequency: holidays/special occasions only Patient Tobacco Use Status: Former Tobacco user Years Smoked: quit 40 years ago e-Cigarette/Vaping Use: Never Used Second Hand Smoke Exposure: No Advance Directives Date on File: 12/20/22 service: No Current occupational status: retired Cognitive needs: No Hearing needs: Yes Vision needs: Yes Review of Systems Narrative - Neurological: Reports difficulty with walking and balance. - Musculoskeletal: Reports intermittent neck pain. Physical Exam Neuro Other: Mental Status: Alert and oriented to person, place, and time. Normal attention. Normal spontaneous speech, fluency, and comprehension. Cranial Nerves: CN II: Visual bourgeois full to confrontation, visual acuity intact. CN III, IV, : Pupils equal, round, reactive to light and accommodation. Extraocular movements are normal. CN V: Facial sensation is normal. CN VII: Facial movements symmetrical. CN VIII: Hearing intact to bedside conversation is normal. CN IX, X: Palate elevates symmetrically. CN XI: Shoulder shrug and head turn symmetrical. CN XII: Tongue midline without atrophy or fasciculations. Motor: Significant hyperreflexia of legs up to 4+ was noted. Legs were also spastic. Gait and Station: In wheelchair. Extrapyramidal: Full facial expressions and blinking. No rigidity. Movements are appropriate with no tremor or abnormality. Speech: Normal; no dysarthria or tremor. Assessment & Plan Assessment & Plan (1) Alzheimer disease: Comment: [place] brain [place] [facility] [place]: Mod diff atrophy, central and cortical, mild MVD CT brain WO at [facility] in October 2021: Mod severe diff cerebral and cerebellar atrophy. 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 b: Anterior spinal mass or lesion with signal abnormality in the spine that require further imaging with contrast to rule out malignancy a: Moderate to severe dementia b: Parkinsonism c: Multifactorial gait disorder Rec: a: Donepezil 10mg a day b: Memantine 10mg bid c: Sertraline 200mg a day in am d: Carbidopa/levodopa 25/100, one tid e: MRI C spine with contrast to define the lesion I reviewed the patient's cervical spine MRI with his [id number]. I explained that the imaging shows spinal stenosis, or a tightening around the spinal cord, which is causing a signal change within the cord itself. This finding is consistent with his symptoms of difficulty walking and balance problems. I also pointed out an incidental solid-appearing finding on the scan. I recommended a repeat MRI with contrast to better evaluate both the spinal cord signal change and the incidental finding. We discussed that his kidney function is normal, which is reassuring for the contrast administration. The patient and his family member verbalized understanding and agreed to proceed with the scan in a few days, after which we will follow up. Orders: Orders MR cervical spine w con Today M89.9 - Disorder of bone, unspecified Coding Level of Care Code Est Pt Level 3 (66425) Diagnoses Alzheimer disease G30.9; F02.80 Lumbar spondylosis M47.816 Lesion of bone of cervical spine M89.9
== END 2025-04-20 08:44 | disposition home or self-care (01) ==
PROVIDERS: PCP Nurse Practitioner Family; Visit Provider Psychiatry & Neurology Neurology
DX: G30.9 Alzheimer's disease, unspecified (principal); F02.80 Dementia in other diseases classified elsewhere, unspecified severity, without behavioral disturbance, psychotic disturbance, mood disturbance, and anxiety; M47.816 Spondylosis without myelopathy or radiculopathy, lumbar region; M89.9 Disorder of bone, unspecified
CPT/HCPCS: 99213

== ENCOUNTER → 2025-04-20 08:12 | Outpatient (BNVA) | payer MEDICARE, SELFPAY | PROVIDERS: PCP Nurse Practitioner Family; Visit Provider Psychiatry & Neurology Neurology | DX: G30.9 Alzheimer's disease, unspecified (principal); F02.80 Dementia in other diseases classified elsewhere, unspecified severity, without behavioral disturbance, psychotic disturbance, mood disturbance, and anxiety; M47.816 Spondylosis without myelopathy or radiculopathy, lumbar region; M89.9 Disorder of bone, unspecified; G20.C Parkinsonism, unspecified; R26.89 Other abnormalities of gait and mobility | CPT/HCPCS: 99212 ==

== ENCOUNTER 2025-05-09 10:55 | Outpatient (AMB) | payer MEDICARE, SELFPAY ==
[2025-05-09 11:12] VITALS: BP 110/78; PULSE 87; O2SAT 97; BMI 27.0
--- NOTE | 2025-05-09 11:12 | A.OFFPC_ITS ---
Vital Signs 05/09/25 11:12 Height 6 ft 1 in Weight 205 lb BMI 27.0 BP 110/78 Blood Pressure Location Lt brachial Position Sitting Pulse 87 Pulse Source Pulse Oximeter Pulse Oximetry (%) 97 Oxygen Delivery Method Room Air Intake Visit Reasons: 4m follow up reschedule Trimming Inspector Required: No Allergies acetaminophen (Percocet) Adverse Reaction (Unknown, Verified 05/09/25 11:13) nausea, dry heaves oxycodone (Percocet) Adverse Reaction (Unknown, Verified 05/09/25 11:13) nausea, dry heaves Tobacco use date assessed: 05/24/24 Dental Screening Dental Screen Date: 05/24/24 HPI 4m follow up reschedule HPI Details Chief Complaint The patient presents for a follow-up on his chronic conditions, including cognitive difficulties and an abnormal gait. History of Present Illness The patient is a 74 year old male presenting for a follow-up visit for his chronic conditions. He has a history of cognitive difficulties, Parkinsonism, and Alzheimer's disease, for which he was most recently seen by neurology on 04/20. His medication regimen includes donepezil, amantadine, sertraline, and carbidopa-levodopa. Family working on getting him into a [facility] facility, which i completely agree with The patient has a very abnormal gait, requires a rolling walker for ambulation, and has experienced multiple falls. He has documented spinal stenosis. His TSH was previously noted to be elevated, and there is concern that he does not take his medications daily as prescribed. Social History - The patient's sister is one of his jonathan rosalia caregivers. - He uses a rolling walker for mobility due to a very abnormal gait. - Given his multiple falls, his sister h as found placement for him at a facility to provide 01/12 care. Health Maintenance The patient is due for an RSV vaccination, which will be administered. Review of Systems Physical Exam General: Cooperative, healthy appearing, comfortable, no acute distress and well developed Orientation: Patient oriented x3, alert and oriented today Limitations: Gait is very abnormal, using a rolling walker Head: Normal to inspection Ears: Hearing grossly normal bilaterally Nose: Normal external nose present Face and sinus: Normal facial exam Eyes: Appearance normal, both eyes and all related structures Neck: Normal visual inspection and Yes full ROM Respiratory: Normal respiratory effort and able to speak in complete sentences. Clear to auscultation bilaterally Cardiovascular: Regular rate and rhythm. Normal S1 and S2 GI: Normal to inspection. Soft to palpation and nontender Skin: No rashes or lesions noted Neuro: Patient oriented x3, hyperreflexive patellar reflexes Extremities: Normal to inspection Results - Labs: TSH is noted to be elevated. - Imaging: Spinal stenosis is documented . Plan 1. Gait Abnormality And Parkinsonism The patient has a history of Parkinsonism and a very abnormal gait, necessitating the use of a rolling walker. He has experienced multiple falls, which require a higher level of care. An MRI of the C-spine will be ordered to rule out tumors or masses on the spinal cord that could be contributing to his symptoms, in addition to his documented spinal stenosis. His caregiver's decision to pursue placement in a 24/7 care facility is strongly supported. Continue carbidopa-levodopa and amantadine. 2. Cognitive Impairment And Alzheimer's Disease The patient has a history of cognitive difficulties and Alzheimer's disease, and was recently evaluated by neurology on 04/20. Continue current medications, including donepezil and sertraline. 3. Elevated Tsh The patient's TSH was noted to be elevated, potentially due to inconsistent medication adherence. All labs, including TSH, will be rechecked. Discussion Notes I spoke with the patient's sister, who is one of his primary caregivers, regarding his condition. We discussed that given his abnormal gait and multiple falls, he requires 24/7 care. I highly recommended proceeding with placement in a care facility and will gladly fill out any required paperwork. We will proceed with an MRI of the cervical spine to check for any tumors or masses, and I will recheck all his labs, including??? TSH. The patient will also receive his RSV vaccination as he is due. Patient Instructions - Continue to use your rolling walker to help prevent falls. - Your sister is working on finding you a new place to live that will have care available 24 hours a day to keep you safe. - We will schedule an MRI scan of your n true to get a better look at your spinal cord. - We are going to recheck your bloodwork , including your thyroid levels. - It is important to take your medicatio ns every day as prescribed. - You are due for an RSV vaccine, which you should receive. [facility] Medical History Nausea and vomiting in adult Barretts esophagus Mixed Alzheimer's and vascular dementia Balance problem Vitamin D deficiency HTN (hypertension) Major depressive disorder Irregular heart rhythm Alzheimer disease Osteoarthritis of right shoulder Lumbar spondylosis Lumbar degenerative disc disease Anxiety GERD (gastroesophageal reflux disease) Hypothyroid Surgical History History of parathyroidectomy Family History Father CVD (cardiovascular disease) Mother Unknown family medical history Social History Housing: House Alcohol intake: current Alcohol intake frequency: holidays/special occasions only Patient Tobacco Use Status: Former Tobacco user Years Smoked: quit 40 years ago e-Cigarette/Vaping Use: Never Used Second Hand Smoke Exposure: No Advance Directives Date on File: 12/20/22 service: No Current occupational status: retired Cognitive needs: No Hearing needs: Yes Vision needs: Yes Questionnaire PHQ-9 Over the last 2 weeks, how often have you been bothered by any of the following problems? 1. Little interest or pleasure in doing things: not at all 2. Feeling down, depressed, or hopeless: not at all 3. Trouble falling or staying asleep, or sleeping too much: not at all 4. Feeling tired or having little energy: not at all 5. Poor appetite or overeating: not at all 6. Feeling bad about yourself - or that you are a failure or have let yourself or your family down: not at all 7. Trouble concentrating on things, such as reading the newspaper or watching television: not at all 8. Moving or speaking so slowly that other people could have noticed. Or the opposite - being so fidgety or restless that you have been moving around a lot more than usual: not at all 9. Thoughts that you would be better off or of hurting yourself in some way: not at all Total score: 0 Depression Screening Interpretation: Negative Depression Screening Done: Yes [id number] - PHQ-9 Billing: Patient declined-do not bill Source: Developed by Drs. Robbie Anderson, Elizabeth Hilario, Cristofer Sánchez and colleagues, with an educational mansoor from [employer]. Thrive Questionnaire Date Thrive assessed: 05/24/24 I am a: Parent/Caregiver What is your living situation today?: I have a steady place to live Within the past 12 months, did the food you bought not last and you didn't have the money to get more?: Never true Within the past 12 months, did you worry whether your food would run out before you got money to buy more?: Never true Do you have trouble paying for medicines?: No Do you have trouble getting transportation to medical appointments?: No Do you have trouble paying your heating and electricity bill?: No Do you have trouble taking care of your child, family member or friend?: No Do you have trouble with day-to-day activities such as bathing, preparing meals, shopping, managing finances, etc.?: Yes Are you currently unemployed and looking for a job?: No Are you interested in more education?: No Currently or been in a relationship where the following occur: I choose not to answer THRIVE Score: 0 DEMIAN-7 AMB Questionnaire DEMIAN-7 Date DEMIAN - 7 assessed: 05/09/25 Feeling nervous, anxious, or on edge: 0 = Not at all Not being able to stop or control worryin = Not at all Worrying too much about different things: 0 = Not at all Trouble relaxin = Not at all Being so restless that it is hard to sit still: 0 = Not at all Becoming easily annoyed or irritable: 0 = Not at all Feeling afraid as if something awful might happen: 0 = Not at all Total DEMIAN-7 score (0-4 normal; 5-9 mild; 10-14 moderate; 15-21 severe): 0 Source: Developed by Drs. Robbie Anderson, Elizabeth Hilario, Cristofer Sánchez and colleagues, with an educational mansoor from [employer]. DEMIAN-7 Assessment Billing DEMIAN-7 Assessment Tool: DEMIAN-7 Assessment 24629 Physical exam (Primary Care) Vital Signs: Last Vital Signs Pulse 87 05/09/25 11:12 BP 110/78 05/09/25 11:12 Pulse Ox 97 05/09/25 11:12 Oxygen Delivery Method Room Air 05/09/25 11:12 BMI result Body Mass Index 27.0 Tobacco/Smoking Status: Tobacco use Status Tobacco use date assessed 05/24/24 05/09/25 11:13 Patient Tobacco Use Status Former Tobacco user 05/09/25 11:13 e-Cigarette/Vaping Use Never Used 05/09/25 11:13 PHQ-9: PHQ-9 Score PHQ-9: Total score 0 05/09/25 11:20 Depression Screening Interpretation: Negative Thrive Assessment: Date of Thrive Assessment Date Thrive assessed 05/24/24 05/09/25 11:13 Currently or been in a relationship where the following occur: I choose not to answer Coding Level of Care Code Est Pt Level 3 (72656) Diagnoses Hypothyroid E03.9 Alzheimer disease G30.9; F02.80 Parkinsonism, unspecified Parkinsonism type G20.C Parkinsonism type: unspecified Gait disorder R26.9 Additional Codes DEMIAN-7 Assessment Billing - DEMIAN-7 Assessment Tool: DEMIAN-7 Assessment 63014 ([id number]) Assessment & Plan Assessment & Plan (1) Hypothyroid: Code(s): E03.9 - Hypothyroidism, unspecified Category: Medical (2) Alzheimer disease: Comment: [place] [facility]: Mod diff atrophy, central and cortical, mild MVD CT brain WO at [facility] in October 2021: Mod severe diff cerebral and cerebellar atrophy. Code(s): G30.9 - Alzheimer's disease, unspecified; F02.80 - Dementia in other diseases classified elsewhere, unspecified severity, without behavioral disturbance, psychotic disturbance, mood disturbance, and anxiety Category: Medical (3) Parkinsonism: Code(s): G20.C - Parkinsonism, unspecified Category: Medical Qualifiers: Parkinsonism type: unspecified Qualified Code(s): G20.C - Parkinsonism, unspecified (4) Gait disorder: Code(s): R26.9 - Unspecified abnormalities of gait and mobility Category: Medical Plan . Orders: Orders Complete Blood Count Auto Diff Today E03.9 - Hypothyroidism, unspecified, F02.80 - Dementia in other diseases classified elsewhere, unspecified severity, without behavioral disturbance, psychotic disturbance, mood disturbance, and anxiety, G20.C - Parkinsonism, unspecified, G30.9 - Alzheimer's disease, unspecified, R26.9 - Unspecified abnormalities of gait and mobility Comprehensive Bertrand. Panel Fast Today E03.9 - Hypothyroidism, unspecified, F02.80 - Dementia in other diseases classified elsewhere, unspecified severity, without behavioral disturbance, psychotic disturbance, mood disturbance, and anxiety, G20.C - Parkinsonism, unspecified, G30.9 - Alzheimer's disease, unspecified, R26.9 - Unspecified abnormalities of gait and mobility TSH reflex Free T4 Today E03.9 - Hypothyroidism, unspecified, F02.80 - Dementia in other diseases classified elsewhere, unspecified severity, without behavioral disturbance, psychotic disturbance, mood disturbance, and anxiety, G20.C - Parkinsonism, unspecified, G30.9 - Alzheimer's disease, unspecified, R26.9 - Unspecified abnormalities of gait and mobility UA CC w/rflx Micro + Cult Today E03.9 - Hypothyroidism, unspecified, F02.80 - Dementia in other diseases classified elsewhere, unspecified severity, without behavioral disturbance, psychotic disturbance, mood disturbance, and anxiety, G20.C - Parkinsonism, unspecified, G30.9 - Alzheimer's disease, unspecified, R26.9 - Unspecified abnormalities of gait and mobility Lipid Panel Today E03.9 - Hypothyroidism, unspecified, F02.80 - Dementia in other diseases classified elsewhere, unspecified severity, without behavioral disturbance, psychotic disturbance, mood disturbance, and anxiety, G20.C - Parkinsonism, unspecified, G30.9 - Alzheimer's disease, unspecified, R26.9 - Unspecified abnormalities of gait and mobility
--- NOTE | 2025-05-09 11:18 | MHC.PC.OV ---
Vital Signs 05/09/25 11:12 Height 6 ft 1 in Weight 205 lb BMI 27.0 BP 110/78 Blood Pressure Location Lt brachial Position Sitting Pulse 87 Pulse Source Pulse Oximeter Pulse Oximetry (%) 97 Oxygen Delivery Method Room Air Intake Visit Reasons: 4m follow up reschedule Allergies acetaminophen (Percocet) Adverse Reaction (Unknown, Verified 05/09/25 11:13) nausea, dry heaves oxycodone (Percocet) Adverse Reaction (Unknown, Verified 05/09/25 11:13) nausea, dry heaves Tobacco use date assessed: 05/24/24 Dental Screening Dental Screen Date: 05/24/24 [facility] Medical History (Updated 04/20/25 @ 08:38 by Acacia Aldridge MD) Nausea and vomiting in adult Barretts esophagus Mixed Alzheimer's and vascular dementia Balance problem Vitamin D deficiency HTN (hypertension) Major depressive disorder Irregular heart rhythm Alzheimer disease Osteoarthritis of right shoulder Lumbar spondylosis Lumbar degenerative disc disease Anxiety GERD (gastroesophageal reflux disease) Hypothyroid Surgical History History of parathyroidectomy Family History Father CVD (cardiovascular disease) Mother Unknown family medical history Social History Housing: House Alcohol intake: current Alcohol intake frequency: holidays/special occasions only Patient Tobacco Use Status: Former Tobacco user Years Smoked: quit 40 years ago e-Cigarette/Vaping Use: Never Used Second Hand Smoke Exposure: No Advance Directives Date on File: 12/20/22 service: No Current occupational status: retired Cognitive needs: No Hearing needs: Yes Vision needs: Yes Questionnaire Thrive Questionnaire Date Thrive assessed: 05/24/24 I am a: Parent/Caregiver What is your living situation today?: I have a steady place to live Within the past 12 months, did the food you bought not last and you didn't have the money to get more?: Never true Within the past 12 months, did you worry whether your food would run out before you got money to buy more?: Never true Do you have trouble paying for medicines?: No Do you have trouble getting transportation to medical appointments?: No Do you have trouble paying your heating and electricity bill?: No Do you have trouble taking care of your child, family member or friend?: No Do you have trouble with day-to-day activities such as bathing, preparing meals, shopping, managing finances, etc.?: Yes Are you currently unemployed and looking for a job?: No Are you interested in more education?: No Currently or been in a relationship where the following occur: I choose not to answer THRIVE Score: 0 DEMIAN-7 AMB Questionnaire DEMIAN-7 Date DEMAIN - 7 assessed: 05/24/24 Source: Developed by Drs. Robbie Anderson, Elizabeth Hilario, Cristofer Sánchez and colleagues, with an educational mansoor from [employer]. Physical exam (Primary Care) Vital Signs: Last Vital Signs Pulse 87 05/09/25 11:12 BP 110/78 05/09/25 11:12 Pulse Ox 97 05/09/25 11:12 Oxygen Delivery Method Room Air 05/09/25 11:12 BMI result Body Mass Index 27.0 Tobacco/Smoking Status: Tobacco use Status Tobacco use date assessed 05/24/24 05/09/25 11:13 Patient Tobacco Use Status Former Tobacco user 05/09/25 11:13 e-Cigarette/Vaping Use Never Used 05/09/25 11:13 Thrive Assessment: Date of Thrive Assessment Date Thrive assessed 05/24/24 05/09/25 11:13 Currently or been in a relationship where the following occur: I choose not to answer Coding
--- OUTSIDE RECORDS SUMMARY | 2025-05-09 14:50 | XMS_ITS | Clinical Summary ---
Author Organization [facility] ity Address [address] [place] [address] Care Team Providers Care Channel Account Manager Name Role Phone Dino Holland MD Primary [...] Documents on File Type Date Recorded Patient Daily Sales Audit Clerk Expl anation Health Care Decision (hx) 01/29/2024 [facility] Care Teams Channel Account Manager Relationship Specialty Start Date End Date Dino Holland MD [address] [place] [address] [address] ANASTASIA Vicente PCP - General Internal Medicine 11/12/16
--- OUTSIDE RECORDS SUMMARY | 2025-05-09 14:50 | XMS_ITS | Patient Health Record ---
Author Organization [facility] [place] [facility] Address [address] [place] [address] Care Team Providers Care Sharepoint Trainer Name Role Phone Robbie Reeves [phone] Reason For Referral No Information Plan Of Treatment No Information
== END 2025-05-09 13:15 | disposition home or self-care (01) ==
LOC: HO.HMCC 10:56
PROVIDERS: PCP Nurse Practitioner Family; Visit Provider Nurse Practitioner Family
DX: E03.9 Hypothyroidism, unspecified (principal); G30.9 Alzheimer's disease, unspecified; F02.80 Dementia in other diseases classified elsewhere, unspecified severity, without behavioral disturbance, psychotic disturbance, mood disturbance, and anxiety; G20.C Parkinsonism, unspecified; R26.9 Unspecified abnormalities of gait and mobility

== ENCOUNTER → 2025-05-10 15:22 | Outpatient (BNV) | payer MEDICARE, SELFPAY | PROVIDERS: PCP Nurse Practitioner Family; Visit Provider Radiology Diagnostic Radiology | DX: R60.0 Localized edema (principal) | CPT/HCPCS: 72142 ==

== ENCOUNTER 2025-05-10 15:30 | Outpatient (REF) | payer MEDICARE, SELFPAY ==
--- NOTE | ~2025-05-10 | MR_ITS ---
EXAMINATION: MR CERVICAL SPINE WITH CONTRAST CLINICAL INFORMATION: Evaluate prevertebral and vertebral abnormality seen on noncontrast MRI cervical spine 04/09/2025. COMPARISON: Noncontrast MRI cervical 04/09/2025. TECHNIQUE: Limited postcontrast MRI of the cervical spine was obtained after the administration of 10 mL IV Gadavist. Axial T1 postcontrast, sagittal T1 postcontrast fat-saturated sequences were obtained. FINDINGS: The examination from 04/09/2025 was reviewed. Current examination demonstrates bulky ventral disc osteophytes and vertebral osteophytes at C4-5, C5, C5-6, C6, and oriented to the left of midline at C7-T1. These appear to be an inciting enlargement of prevertebral soft tissue edema and enhancement spanning the C4 through superior T1 level, without definitive soft tissue lesion identified. Patchy enhancement in the bone marrow of the anterior C4, C5, and C6 vertebral bodies is felt to be degenerative in nature: -For example, at the C4-5 disc level, a ventrally projecting disc osteophyte measures 1.6 cm AP diameter (series 6, image 16) with abutting edema and enhancement. -At the mid C6 level, a large ventral vertebral osteophyte measures 1.0 x 3.1 cm (AP, TRV) (series 6, image 22) with abutting edema and enhancement. -At the superior T1 endplate, the esophagus is deviated to the right by a large left ventrally projecting osteophyte measuring approximately 2.0 cm AP diameter (series 6, image 30). There is similar abutting edema and enhancement. Mild ventral wedging of C6, C7, and T1 is also felt to be degenerative in nature. There is degenerative enhancement and edema of the interspinous ligament spanning the spinous processes of C4-C6. There is no abnormal intra or extra medullary enhancement on this examination. No abnormal enhancement in the posterior fossa included on the examination. MR/MR cervical spine w con IMPRESSION: 1. Prevertebral edema and enhancement spanning C4-T1 appears to be degenerative, incited by large bulky ventral vertebral and disc osteophytes. No definite pathologic soft tissue lesion is identified. However, because the possibility of tumor cannot be entirely excluded on the basis of this examination, correlation with CT examination is also recommended, as well as close interval radiographic plain film follow-up. 2. Enhancement and edema within the anterior C6 vertebral body is also felt to be reactive secondary to advanced degenerative change. 3. Posteriorly, degenerative enhancement and edema of the interspinous ligament is present spanning the spinous processes of C4-C6. 4. There is no abnormal intra-axial or extra medullary enhancement present. 5. Please refer to the prior examination for description of spondylotic findings. Electronically signed by: Alfredo Sanchez MD 05/12/2025 10:34 AM FAVIAN RAZA
--- OUTSIDE RECORDS SUMMARY | 2025-05-10 15:59 | XMS_ITS | Patient Health Record ---
Author Organization [facility] Address [address] [place] [address] Care Team Providers Care Anthropology And Archeology Instructor Name Role Phone Robbie Reeves [phone] Reason For Referral No Information Plan Of Treatment No Information
--- OUTSIDE RECORDS SUMMARY | 2025-05-10 15:59 | XMS_ITS | Clinical Summary ---
Author Organization [facility] [facility] ity Address [address] [place] [address] Care Team Providers Care Telephone Answering Service Operator Name Role Phone Dino Holland MD Primary Care Provider [phone] Social History Tobacco Use Types Packs/Day Years [...] Documents on File Type Date Recorded Patient Network Support Specialist Expl anation Health Care Decision (hx) 01/29/2024 HE [facility] PROXY Care Teams Telephone Answering Service Operator Relationship Specialty Start Date End Date Dino Holland MD [address] [place] [address] Dr [address] ANASTASIA Vicente PCP - General Internal Medicine 11/12/16
== END 2025-05-10 15:31 | disposition home or self-care (01) ==
LOC: HO.MRI 15:30
PROVIDERS: PCP Nurse Practitioner Family; Visit Provider Psychiatry & Neurology Neurology
DX: M89.9 Disorder of bone, unspecified (principal); G82.20 Paraplegia, unspecified
CPT/HCPCS: 72142; A9585